=== PATIENT | male | born 1970 ===

== ENCOUNTER 2020-09-01 13:24 | Outpatient (REF) | payer OTHER, SELFPAY ==
--- NOTE | ~2020-09-01 | XR_ITS ---
EXAMINATION: XR CERVICAL SPINE CLINICAL INFORMATION: Cervicalgia COMPARISON: None TECHNIQUE: Cervical spine is imaged in 5 views: AP, odontoid, lateral, and bilateral oblique. FINDINGS: There is normal cervical lordosis. The vertebral bodies are normal in height. There is no cervical vertebral compression, spondylolisthesis, disc narrowing, or prevertebral soft tissue swelling. The odontoid appears intact. Oblique views show no definite spurring neural foramina. There is no cervical rib. XR/XR cervical spine min 6V IMPRESSION: Unremarkable examination.
--- NOTE | ~2020-09-01 | XR_ITS ---
EXAMINATION: XR SHOULDER, RIGHT XR SHOULDER, LEFT CLINICAL INFORMATION: Bilateral pain COMPARISON: Radiographs cervical spine 09/01/2020. TECHNIQUE: The right shoulder is imaged in 5 views. The left shoulder is imaged in 4 views. There are a total of 9 views. FINDINGS: Right: There is a punctate calcification adjacent to greater tuberosity on external rotation view consistent with punctate calcific tendinosis distal superior rotator cuff. The bony mineralization is normal. There is no destructive process. No fracture or dislocation. The glenohumeral joint is normal. There is some smooth benign mineralization in the acromioclavicular joint but no joint narrowing or erosive change or acromioclavicular separation. Left: There is no fracture or dislocation or destructive process. No visible rotator cuff calcifications. Normal bony mineralization. No joint narrowing. The acromioclavicular alignment is normal. XR/XR shoulder LT min 2V IMPRESSION: 1. Right: Punctate calcific tendinosis distal superior rotator cuff. 2. Left: Unremarkable.
--- NOTE | ~2020-09-01 | XR_ITS ---
EXAMINATION: XR LUMBOSACRAL SPINE CLINICAL INFORMATION: Pain. Lumbago with sciatica. COMPARISON: Radiographs lumbar spine 02/22/2020 TECHNIQUE: Three views of the lumbosacral spine. FINDINGS: There is normal lumbar segmentation with 5 nonrib-bearing lumbar vertebrae of normal height and normal lumbar lordosis. There is no lumbar vertebral compression, spondylolisthesis, destructive process, or paraspinal soft tissue swelling. Again, there are degenerative disc changes at L5-S1 with disc narrowing and endplate sclerosis and mild vertebral spurring. Disc narrowing is borderline increased since prior exam. The SI joints and visualized sacrum are unremarkable. XR/XR lumbar spine 2-3V IMPRESSION: Degenerative disc changes L5-S1.
--- NOTE | ~2020-09-01 | XR_ITS ---
EXAMINATION: XR THORACOLUMBAR SPINE CLINICAL INFORMATION: Cervicalgia, lumbago with sciatica COMPARISON: Radiographs cervical spine 09/01/2020 TECHNIQUE: AP and lateral views thoracic spine are obtained. FINDINGS: There is normal thoracic segmentation with 12 rib-bearing thoracic vertebrae of normal height and normal thoracic kyphosis. There is a gentle levocurvature mid to lower thoracic spine. There is no vertebral compression, spondylolisthesis, destructive process, or paraspinal soft tissue swelling. Some mild degenerative disc changes are present mid thoracic spine. XR/XR thoracic spine 2V IMPRESSION: 1. Gentle levocurvature mid to lower thoracic spine with mild degenerative disc changes. 2. No thoracic vertebral compression, spondylolisthesis, or destructive process.
--- NOTE | ~2020-09-01 | XR_ITS ---
EXAMINATION: XR SHOULDER, RIGHT XR SHOULDER, LEFT CLINICAL INFORMATION: Bilateral pain COMPARISON: Radiographs cervical spine 09/01/2020. TECHNIQUE: The right shoulder is imaged in 5 views. The left shoulder is imaged in 4 views. There are a total of 9 views. FINDINGS: Right: There is a punctate calcification adjacent to greater tuberosity on external rotation view consistent with punctate calcific tendinosis distal superior rotator cuff. The bony mineralization is normal. There is no destructive process. No fracture or dislocation. The glenohumeral joint is normal. There is some smooth benign mineralization in the acromioclavicular joint but no joint narrowing or erosive change or acromioclavicular separation. Left: There is no fracture or dislocation or destructive process. No visible rotator cuff calcifications. Normal bony mineralization. No joint narrowing. The acromioclavicular alignment is normal. XR/XR shoulder RT min 2V IMPRESSION: 1. Right: Punctate calcific tendinosis distal superior rotator cuff. 2. Left: Unremarkable.
== END 2020-09-01 13:25 | disposition home or self-care (01) ==
LOC: HO.XRAY 13:24
PROVIDERS: PCP Internal Medicine; Visit Provider Family Medicine
DX: M54.2 Cervicalgia (principal); M54.41 Lumbago with sciatica, right side; M54.42 Lumbago with sciatica, left side
CPT/HCPCS: 72052; 72070; 72100; 73030

== ENCOUNTER 2021-04-08 13:31 | Emergency (ER) | payer OTHER, SELFPAY ==
[2021-04-08 14:02] VITALS: BP 130/81; PULSE 95; RESP 16; TEMP 36.8; O2SAT 98; BMI 28.3
[2021-04-08 14:19] LABS: Glucose, Whole Blood 174 mg/dL (60-115)
--- NOTE | 2021-04-08 15:29 | ED_ITS ---
HPI - General Adult General Chief complaint: General Medical Stated complaint: med refill Time Seen by Provider: 04/08/21 15:29 Source: patient Mode of arrival: ambulatory Limitations: no limitations History of Present Illness HPI narrative: 50-year-old male here for a medication refill. Patient is diabetic, and is out of his lancets, test strips, and pen needles. Patient takes insulin and has not been able to take it for 2 days. Patient has called his primary care provider, but it is the weekend and he cannot get this represcribed today Related Data Previous Rx's Medication Instructions Recorded blood sugar diagnostic (Accutrend #50 ea 04/08/21 Glucose test strips) lancets 28 gauge (FreeStyle #100 ea 04/08/21 Lancets) needle (disp) 26 gauge 26 gauge x #100 ea 04/08/2109/18 (BD Intradermal Bevel [place]) Allergies Allergy/AdvReac Type Severity Reaction Status Date / Time penicillin V Allergy Unknown Verified 01/27/19 00:00 Penicillins [PENICILLINS] Allergy Unknown SHORTNESS Unverified 03/30/20 19:27 OF BREATH Review of Systems Constitutional: Constitutional: Denies body ache(s), Denies chills, Denies fatigue, Denies fever(s), Denies headache(s), Denies malaise and Denies weakness Eyes: Eyes: Denies diplopia ENT: Denies vertigo, Denies dizziness, Denies otalgia, Denies headache(s), Denies mouth pain, Denies post nasal drip, Denies sinus pain, Denies sinus pressure, Denies sore throat and Denies throat swelling Cardiovascular: Cardiovascular: Denies chest pain, Denies syncope, Denies leg edema, Denies lightheadedness, Denies Loss of Consciousness, Denies palpitations and Denies dyspnea Respiratory: Respiratory: Denies chest congestion, Denies cough and Denies dyspnea Gastrointestinal: Gastrointestinal: Denies abdominal pain, Denies hematochezia, Denies constipation, Denies diarrhea and Denies vomiting Musculoskeletal: Musculoskeletal: Reports no additional musculoskeletal complaints Neurologic: Denies confusion, Denies vertigo, Denies dizziness, Denies syncope, Denies headache(s) and Denies weakness Psychiatric: Psychiatric: Denies anxiety, Denies confusion and Denies depression Endocrine: Endocrine: Denies fatigue and Denies palpitations Allergic/Immunologic: Allergic/Immunologic: Denies throat swelling PMFSH Past Medical History Medical History Diabetes HTN (hypertension) Social History Social History Advance Directives: No Physical Exam Vital Signs: Vital Signs: Last Vital Signs Temp 98.2 F 04/08/21 14:02 Pulse 95 04/08/21 14:02 Resp 16 04/08/21 14:02 BP 130/81 04/08/21 14:02 Pulse Ox 98 04/08/21 14:02 Body Mass Index 28.3 Const: General: No confusion Nutritional Appearance: well nourished Orientation/consciousness: No confusion Limitations: no limitations HENMT: Head: Yes normal to inspection, Yes normocephalic and Yes atraumatic Ears: hearing grossly normal bilaterally, external ears normal, TM's normal bilaterally and EAC's normal General nose exam: Normal external nose present Face and sinus: Yes normal facial exam and Yes sinuses nontender Mouth: Normal oral and palatal mucosa present Throat: Yes posterior oropharynx normal Eyes: Conjunctivae: conjunctivae normal Pupils: Equal, round and reactive pupils present EOM: EOMs intact bilaterally Neck: Neck: Yes full ROM, Yes no lymphadenopathy and Yes supple Resp: Effort & Inspection: normal respiratory effort and able to speak in complete sentences Auscultation: clear to auscultation bilaterally, no crackles, no rales, no rhonchi and no wheezes Cardio: Rate: regular rate Rhythm: regular rhythm Heart sounds: S1 normal heart sound present and S2 normal heart sound present Skin: General skin exam: no rashes or lesions noted Neuro: General: No confusion Cranial nerves: Yes Equal, round and reactive pupils present Extrem: General: Yes normal to inspection and Yes full ROM Psych: Appearance: grossly normal Affect: normal affect Attitude: cooperative Thought process: Normal thought process present Course Course Course Narrative: 50-year-old male who is an insulin-dependent diabetic is out of his supplies. Patient is fingerstick glucose was 174. Prescribed lancets, test strips, and insulin needles. Counseled patient that he needs to follow up with his primary care provider for this in the future. Medical Decision Making Lab Data Labs: Lab Results 04/08/21 Range/Units 14:15 POC Glucose 174 H (60-115) mg/dL Discharge Plan Discharge Clinical Impression: Medication refill Patient Disposition: Home, Self-Care Prescriptions: New (DME) lancets [FreeStyle Lancets] 28 gauge misc See Rx Instructions .Route Qty: 100 RF: 0 (DME) Accutrend Glucose test strips Strip See Rx Instructions .Route Qty: 50 RF: 0 (DME) BD Intradermal Bevel [place] 26 gauge x 3/8 needle See Rx Instructions .Route Qty: 100 RF: 0 Interventions: ED Discharge Assessment Last Done: 04/08/21 15:46 Discharge Date/Time: 04/08/21 15:51
== END 2021-04-08 15:51 | disposition home or self-care (01) ==
PROVIDERS: Emergency Provider Emergency Medicine Emergency Medical Services; PCP Internal Medicine
DX: Z76.0 Encounter for issue of repeat prescription (principal); E11.9 Type 2 diabetes mellitus without complications; Z79.899 Other long term (current) drug therapy; Z79.4 Long term (current) use of insulin
CPT/HCPCS: 82947; 99282; 99284

== ENCOUNTER 2021-09-11 06:03 | Outpatient (REF) | payer BC, SELFPAY ==
[2021-09-11 06:18] LABS: MANUAL DIFF FLAG NO
[2021-09-11 07:32] LABS: Basophils Percent Auto 0.4 % (0-2); Eosinophils Absolute Auto 0.4 X10*3/uL (0.0-0.4); Eosinophils Percent Auto 4.2 % (0-4); Hematocrit 45.3 % (42.0-52.0); Hemoglobin 15.2 g/dl (14.0-18.0); Imm Gran Abs Auto 0.03 X10*3/uL (0.00-0.03); Imm Gran Pct Auto 0.3 % (0.0-0.4); Lymphocytes Absolute Auto 2.7 X10*3/uL (1.2-4.9); Lymphocytes Percent Auto 28.6 % (20-40); Mean Corpuscular HGB Conc 33.6 g/dl (31.0-36.0); Mean Corpuscular Hemoglobin 30.8 pg (27.0-33.0); Mean Corpuscular Volume 91.9 fL (80.0-98.0); Mean Platelet Volume 10.7 fL (9.4-12.4); Monocytes Percent Auto 10.2 % (2-11); Neutrophils Absolute Auto 5.2 x10*3/uL (2.0-8.3); Neutrophils Percent Auto 56.3 % (45-73); Platelet Count 288 X10*3/uL (160-400); Red Blood Count 4.93 X10*6/uL (4.60-5.80); Red Cell Distribution Width 13.2 % (11.0-16.0); White Blood Count 9.3 X10*3/uL (4.8-10.8)
[2021-09-11 07:34] LABS: Estimated Average Glucose 166 mg/dL; Hemoglobin A1c % 7.4 %
[2021-09-11 08:04] LABS: Alanine Aminotransferase 49 U/L (0-40); Albumin Level 4.3 g/dL (3.5-5.0); Alkaline Phosphatase 86 U/L (39-117); Anion Gap 17 (12-20); Aspartate Amino Transferase 34 U/L (5-37); Bilirubin Total 0.3 mg/dL (0.0-1.0); Blood Urea Nitrogen 20 mg/dL (9-16); Calcium 9.6 mg/dL (8.4-10.2); Carbon Dioxide 27 mmol/L (22-29); Chloride 103 mmol/L (96-108); Cholesterol 173 mg/dL; Estimated Glomerular Filt Rate 59; Glucose Random 105 mg/dL (60-115); HDL Cholesterol 34 mg/dL; LDL Cholesterol Calculated 109 mg/dl; Potassium 4.5 mmol/L (3.3-5.1); Sodium 142 mmol/L (135-145); Total Protein 7.7 g/dL (6.5-8.0); Triglycerides 152 mg/dL
[2021-09-11 08:09] LABS: Prostate Specific Antigen 0.67 ng/mL (<0.05-4.0); TSH reflex Free T4 2.27 uIU/mL (0.32-4.0)
[2021-09-11 08:26] LABS: Folate 10.4 ng/mL (> or = 4.0); Vitamin B12 427 pg/mL (200-900)
[2021-09-11 08:26] LABS: Creatinine Urine 231.81 mg/dL; Microalbum/Creatinine Ratio Ur 6.9 ug/mg cr
== END 2021-09-11 06:04 | disposition home or self-care (01) ==
LOC: HO.LAB 06:03
PROVIDERS: PCP Internal Medicine; Visit Provider Internal Medicine
DX: Z12.5 Encounter for screening for malignant neoplasm of prostate (principal); E11.9 Type 2 diabetes mellitus without complications; E78.5 Hyperlipidemia, unspecified; I10 Essential (primary) hypertension; R35.0 Frequency of micturition
CPT/HCPCS: 36415; 80053; 80061; 82043; 82607; 82746; 83036; 84153; 84443; 85025

== ENCOUNTER 2021-10-26 18:50 | Emergency (ER) | payer BC, SELFPAY ==
--- NOTE | 2021-10-26 | ECG_ITS ---
Test Reason : CHEST PAIN Blood Pressure : / mmHG Vent. Rate : 089 BPM Atrial Rate : 089 BPM P-R Int : 134 ms QRS Dur : 070 ms QT Int : 320 ms P-R-T Axes : 033 013 030 degrees QTc Int : 389 ms Normal sinus rhythm Septal infarct , age undetermined Abnormal ECG When compared with ECG of 15-AUG-2019 17:42, Septal infarct is now Present Referred By: Generic ED Physician Electronically Signed By:Blaze Parekh
--- NOTE | ~2021-10-26 | XR_ITS ---
EXAMINATION: XR CHEST CLINICAL INFORMATION: Pain. Evaluate for pneumonia. COMPARISON: None TECHNIQUE: Frontal view of the chest was obtained. FINDINGS: Normal symmetric lung volumes. No parenchymal consolidation. No pleural effusion. No pneumothorax. Cardiomediastinal silhouette and pulmonary vascularity are within normal limits. No acute osseous abnormalities. XR/XR chest 1V IMPRESSION: No acute findings
[2021-10-26 19:04] VITALS: BP 143/96; PULSE 90; RESP 16; TEMP 36.4; O2SAT 96; BMI 29.1
[2021-10-26 19:20] LABS: MANUAL DIFF FLAG NO
[2021-10-26 19:24] LABS: Basophils Percent Auto 0.3 % (0-2); Eosinophils Absolute Auto 0.4 X10*3/uL (0.0-0.4); Eosinophils Percent Auto 3.1 % (0-4); Hematocrit 43.6 % (42.0-52.0); Hemoglobin 14.5 g/dl (14.0-18.0); Imm Gran Abs Auto 0.02 X10*3/uL (0.00-0.03); Imm Gran Pct Auto 0.2 % (0.0-0.4); Lymphocytes Absolute Auto 3.2 X10*3/uL (1.2-4.9); Lymphocytes Percent Auto 27.1 % (20-40); Mean Corpuscular HGB Conc 33.3 g/dl (31.0-36.0); Mean Corpuscular Hemoglobin 30.5 pg (27.0-33.0); Mean Corpuscular Volume 91.6 fL (80.0-98.0); Mean Platelet Volume 10.3 fL (9.4-12.4); Monocytes Absolute Auto 0.9 X10*3/uL (0.1-1.2); Monocytes Percent Auto 7.7 % (2-11); Neutrophils Absolute Auto 7.2 x10*3/uL (2.0-8.3); Neutrophils Percent Auto 61.6 % (45-73); Platelet Count 245 X10*3/uL (160-400); Red Blood Count 4.76 X10*6/uL (4.60-5.80); Red Cell Distribution Width 13.2 % (11.0-16.0); White Blood Count 11.6 X10*3/uL (4.8-10.8)
[2021-10-26 19:40] LABS: Alanine Aminotransferase 39 U/L (0-40); Albumin Level 4.2 g/dL (3.5-5.0); Alkaline Phosphatase 104 U/L (39-117); Anion Gap 16 (12-20); Aspartate Amino Transferase 23 U/L (5-37); Bilirubin Total 0.5 mg/dL (0.0-1.0); Blood Urea Nitrogen 19 mg/dL (9-16); Calcium 9.4 mg/dL (8.4-10.2); Carbon Dioxide 26 mmol/L (22-29); Chloride 102 mmol/L (96-108); Creatinine Clr Calc Pharmacy 53.3; Estimated Glomerular Filt Rate 46; Glucose Random 179 mg/dL (60-115); Potassium 4.8 mmol/L (3.3-5.1); Sodium 139 mmol/L (135-145); Total Protein 7.9 g/dL (6.5-8.0)
[2021-10-26 19:59] LABS: Influenza A Negative (Negative); Influenza B2 Negative (Negative)
[2021-10-26 20:00] LABS: COVID-19 Test Negative (Negative); IDNOW Serial# 16C4AD1C
[2021-10-26 23:38] VITALS: BP 144/100; PULSE 84; RESP 15; O2SAT 98
[2021-10-26 23:45] LABS: Glucose, Whole Blood 91 mg/dL (60-115)
--- NOTE | 2021-10-27 00:14 | ED.GENADULT ---
HPI - General Adult General Chief complaint: General Medical Stated complaint: congestion/chest pain/sore throat Time Seen by Provider: 10/27/21 00:08 Source: patient Mode of arrival: ambulatory Limitations: no limitations History of Present Illness HPI narrative: Patient was in the emergency room complaining of coughing for 4 days. Patient states that every time he coughs, he has chest pain bilaterally. Patient does not have shortness of breath. Patient states that yesterday he borrowed add nebulizer from a family member, give himself 1 neb treatment. Patient denies shortness of breath. No palpitations, no calf pain. Related Data Previous Rx's Medication Instructions Recorded blood sugar diagnostic (Accutrend #50 ea 04/08/21 Glucose test strips) lancets 28 gauge (FreeStyle #100 ea 04/08/21 Lancets) needle (disp) 26 gauge 26 gauge x #100 ea 04/08/21 3/8 (BD Intradermal Bevel [place]) Allergies Allergy/AdvReac Type Severity Reaction Status Date / Time penicillin V Allergy Unknown Verified 01/27/19 00:00 Penicillins [PENICILLINS] Allergy Unknown SHORTNESS Unverified 03/30/20 19:27 OF BREATH Review of Systems Review of Systems: Constitutional : No Weight loss, No Fever, No Chills, No Night Sweats, No Fatigue, No Malaise ENT/Mouth : No Hearing loss, No Ear Pain, No Nasal Congestion, No Sinus Pain, No Hoarseness, No sore throat, No Rhinorrhea, No Swallowing Difficulty Eyes: No Eye Pain, No Swelling, No Redness, No Foreign Body, No Discharge, No Vision Changes Cardiovascular : Complaining of bilateral chest discomfort only when coughing, otherwise no chest pain. No SOB, No Dyspnea on Exertion, No Orthopnea, No Edema, No Palpitations Respiratory : Complaining of cough, no wheezing Gastrointestinal : No Nausea, No Vomiting, No Diarrhea, No Constipation, No abdominal Pain, No Hematochezia, No Melena Genitourinary : no irregular bleeding, No Dysuria, No Urinary Frequency, No Hematuria, No Urinary Incontinence, No Urgency, No Flank Pain, No Urinary Flow Changes, No Hesitancy Musculoskeletal : No joint pain, No Myalgias, No Joint Swelling Skin : No Skin Lesions, No rash Neuro : No Weakness, No Numbness, No Paresthesias, No Loss of Consciousness, No Dizziness, No Headache Psych : No Anxiety/Panic, No Depression, No SI/HI/AH/VH, No Social Issues, Heme/Lymph: No Bruising, No Bleeding,No Lymphadenopathy Endocrine : No Polyuria, No Polydipsia, No Temperature Intolerance [facility] Past Medical History Medical History Diabetes HTN (hypertension) Social History Social History Advance Directives: No Physical Exam ED Vital Signs: Vital Signs - 24 hr 10/26/21 19:04 10/26/21 23:38 10/27/21 01:24 Temperature 97.5 F Pulse Rate 90 84 86 Respiratory Rate 16 15 20 Blood Pressure 143/96 H 144/100 H 140/82 H Pulse Oximetry 96 98 BMI result Body Mass Index 29.1 Const Other: Appearance: Alert. Oriented X3. No acute distress. Well-appearing Eyes: Pupils equal, round and reactive to light. ENT: Pharynx normal. Neck: Normal inspection. Neck supple. No lymph nodes noted. No crepitus CVS: Normal heart rate and rhythm. Pulses normal. Normal S1 and S2 Respiratory: No respiratory distress. Breath sounds normal. No Wheezing. No rales Abdomen: Soft and nontender. No rigidity. No distention. Skin: Skin warm and dry. Normal skin color. Normal skin turgor. Extremities: No lower extremity edema. No Lacerations. No Rash Neuro: Oriented X 3. No motor deficit. No sensory deficit. Moving all extremities. No slurred speech. CN 2 through 12 grossly intact Psych: calm, cooperative, normal affect Course Course Course Narrative: Chest x-ray pending. Creatinine is slightly elevated at 1.61., patient getting IV fluids. Will repeat labs after repeating labs. Mild leukocytosis likely reactive. After IV fluids, creatinine improved, likely secondary to hydration. Patient likely having a viral syndrome Medical Decision Making Lab Data Result diagrams: 10/26/21 19:13 10/27/21 01:26 Labs: Lab Results 10/26/21 10/26/21 10/26/21 Range/Units 19:13 19:13 19:13 WBC 11.6 H (4.8-10.8) X10*3/uL RBC 4.76 (4.60-5.80) X10*6/uL Hgb 14.5 (14.0-18.0) g/dl Hct 43.6 (42.0-52.0) % MCV 91.6 (80.0-98.0) fL MCH 30.5 (27.0-33.0) pg MCHC 33.3 (31.0-36.0) g/dl RDW 13.2 (11.0-16.0) % Plt Count 245 (160-400) X10*3/uL MPV 10.3 (9.4-12.4) fL Immature Gran % (Auto) 0.2 (0.0-0.4) % Neut % (Auto) 61.6 (45-73) % Lymph % (Auto) 27.1 (20-40) % [place] % (Auto) 7.7 (2-11) % Eos % (Auto) 3.1 (0-4) % Baso % (Auto) 0.3 (0-2) % Lymph # (Auto) 3.2 (1.2-4.9) X10*3/uL [place] # (Auto) 0.9 (0.1-1.2) X10*3/uL Eos # (Auto) 0.4 (0.0-0.4) X10*3/uL Baso # (Auto) 0.0 (0.0-0.2) X10*3/uL Abs Immat Gran (auto) 0.02 (0.00-0.03) X10*3/uL Absolute Neuts (auto) 7.2 (2.0-8.3) x10*3/uL Absolute Nucleated RBC 0.000 (0.0-0.012) X10*3/uL Nucleated RBC % (auto) 0.0 (0.0-0.2) /100WBC Sodium 139 (135-145) mmol/L Potassium 4.8 (3.3-5.1) mmol/L Chloride 102 (96-108) mmol/L Carbon Dioxide 26 (22-29) mmol/L Anion Gap 16 (12-20) BUN 19 H (9-16) mg/dL Creatinine 1.61 H (0.5-1.4) mg/dL Estim Creat Clear Calc 53.3 Estimated GFR 46 POC Glucose (60-115) mg/dL Random Glucose 179 H D (60-115) mg/dL Calcium 9.4 (8.4-10.2) mg/dL Total Bilirubin 0.5 (0.0-1.0) mg/dL AST 23 (5-37) U/L ALT 39 (0-40) U/L Alkaline Phosphatase 104 D (39-117) U/L Total Protein 7.9 (6.5-8.0) g/dL Albumin 4.2 (3.5-5.0) g/dL COVID-19 (ARELY) (Negative) COVID-19 Clin Com Influenza Type A (TERI) Negative (Negative) Influenza Type B (TERI) Negative (Negative) Influenza A & B Note See Note 10/26/21 10/26/21 10/27/21 Range/Units 19:13 23:36 01:26 WBC (4.8-10.8) X10*3/uL RBC (4.60-5.80) X10*6/uL Hgb (14.0-18.0) g/dl Hct (42.0-52.0) % MCV (80.0-98.0) fL MCH (27.0-33.0) pg MCHC (31.0-36.0) g/dl RDW (11.0-16.0) % Plt Count (160-400) X10*3/uL MPV (9.4-12.4) fL Immature Gran % (Auto) (0.0-0.4) % Neut % (Auto) (45-73) % Lymph % (Auto) (20-40) % [place] % (Auto) (2-11) % Eos % (Auto) (0-4) % Baso % (Auto) (0-2) % Lymph # (Auto) (1.2-4.9) X10*3/uL [place] # (Auto) (0.1-1.2) X10*3/uL Eos # (Auto) (0.0-0.4) X10*3/uL Baso # (Auto) (0.0-0.2) X10*3/uL Abs Immat Gran (auto) (0.00-0.03) X10*3/uL Absolute Neuts (auto) (2.0-8.3) x10*3/uL Absolute Nucleated RBC (0.0-0.012) X10*3/uL Nucleated RBC % (auto) (0.0-0.2) /100WBC Sodium 141 (135-145) mmol/L Potassium 3.8 D (3.3-5.1) mmol/L Chloride 107 (96-108) mmol/L Carbon Dioxide 24 (22-29) mmol/L Anion Gap 14 (12-20) BUN 17 H (9-16) mg/dL Creatinine 1.05 (0.5-1.4) mg/dL Estim Creat Clear Calc 81.7 Estimated GFR > 60 POC Glucose 91 (60-115) mg/dL Random Glucose 72 D (60-115) mg/dL Calcium 8.6 D (8.4-10.2) mg/dL Total Bilirubin (0.0-1.0) mg/dL AST (5-37) U/L ALT (0-40) U/L Alkaline Phosphatase (39-117) U/L Total Protein (6.5-8.0) g/dL Albumin (3.5-5.0) g/dL COVID-19 (ARELY) Negative (Negative) COVID-19 Clin Com See Note Influenza Type A (TERI) (Negative) Influenza Type B (TERI) (Negative) Influenza A & B Note Imaging Data Chest x-ray: Radiologist's impression: Normal symmetric lung volumes. No parenchymal consolidation. No pleural effusion. No pneumothorax.? Cardiomediastinal silhouette and pulmonary vascularity are within normal limits. No acute osseous abnormalities. XR/XR chest 1V IMPRESSION: No acute findings Discharge Plan Discharge Clinical Impression: Acute viral syndrome, Acute kidney injury Patient Disposition: Home, Self-Care Instructions: Viral Syndrome (ED), Acute Kidney Injury (DC) Additional Instructions: Please follow-up with your primary care physician tomorrow. If you have any worsening or new symptoms, please return to the emergency room or call 911 Prescriptions: No Action (DME) lancets [FreeStyle Lancets] 28 gauge misc See Rx Instructions .Route Qty: 100 0RF Rx Instructions: As directed (DME) Accutrend Glucose test strips Strip See Rx Instructions .Route Qty: 50 0RF Rx Instructions: As directed (DME) BD Intradermal Bevel [place] 26 gauge x 3/8 needle See Rx Instructions .Route Qty: 100 0RF Rx Instructions: As directed
[2021-10-27] MEDS: 0.9 % Sodium Chloride 1,000 ML 999 ML IVCONT (00:30)
[2021-10-27 01:24] VITALS: BP 140/82; PULSE 86; RESP 20
[2021-10-27 01:55] LABS: Anion Gap 14 (12-20); Blood Urea Nitrogen 17 mg/dL (9-16); Calcium 8.6 mg/dL (8.4-10.2); Carbon Dioxide 24 mmol/L (22-29); Chloride 107 mmol/L (96-108); Creatinine Clr Calc Pharmacy 81.7; Estimated Glomerular Filt Rate > 60; Glucose Random 72 mg/dL (60-115); Potassium 3.8 mmol/L (3.3-5.1); Sodium 141 mmol/L (135-145)
--- NOTE | 2021-10-27 02:16 | PC.NURSE ---
I assumed nursing care of Pete at 2330. Since that time the pt has been alert, oriented x 3, without chest pain and without shortness of breath. He has remained calm and cooperative, ambulatory with steady gait, makes eye contact with RN. Pt is discharged at this time. He verbalized an understanding of all DC orders and he ambulated out of the ED independently and with steady agit.
== END 2021-10-27 02:16 | disposition home or self-care (01) ==
PROVIDERS: Emergency Provider Emergency Medicine
DX: B34.9 Viral infection, unspecified (principal); R07.89 Other chest pain; R05.9 Cough, unspecified; Z79.899 Other long term (current) drug therapy; Z20.822 Contact with and (suspected) exposure to COVID-19
CPT/HCPCS: 36415; 71045; 80048; 80053; 82947; 85025; 87502; 87635; 93005; 96360; 99284

== ENCOUNTER 2022-12-31 20:02 | Emergency (ER) | payer BC, SELFPAY ==
[2022-12-31 20:10] VITALS: BP 151/65; PULSE 86; RESP 18; TEMP 36.1; O2SAT 99; BMI 31.7
--- NOTE | 2022-12-31 20:12 | ED_ITS ---
HPI - General Adult General Chief complaint: Abdominal Pain Stated complaint: Vomiting/Diarrhea/Body aches Time Seen by Provider: 12/31/22 22:46 Source: patient Mode of arrival: ambulatory Limitations: no limitations History of Present Illness HPI narrative: Patient otherwise healthy had a hamburger from [employer] yesterday since then been having diarrhea and diffuse abdominal pain at slight nausea now feeling much better last bowel movement was 2 hours ago no fever no chills no blood in the stool Related Data Previous Rx's Medication Instructions Recorded blood sugar diagnostic (Accutrend #50 ea 04/08/21 Glucose test strips) lancets 28 gauge (FreeStyle #100 ea 04/08/21 Lancets) needle (disp) 26 gauge 26 gauge x #100 ea 04/08/21 3/8 (BD Intradermal Bevel [place]) Allergies Allergy/AdvReac Type Severity Reaction Status Date / Time penicillin V Allergy Unknown Verified 01/27/19 00:00 Penicillins [PENICILLINS] Allergy Unknown SHORTNESS Unverified 03/30/20 19:27 OF BREATH Review of Systems Review of Systems: Yes all other systems are reviewed and are negative [facility] Past Medical History Medical History Diabetes HTN (hypertension) Social History Social History Advance Directives: No Advance Directives Information Provided: No Physical Exam ED Vital Signs: Vital Signs - 24 hr 12/31/22 20:10 Temperature 96.9 F Pulse Rate 86 Respiratory Rate 18 Blood Pressure 151/65 H Pulse Oximetry 99 Oxygen Delivery Method Room Air BMI result Body Mass Index 31.7 Appearance: Alert. Oriented X3. No acute distress. Eyes: No pallor or icterus ENT: Pharynx normal. Oral Mucosa moist Neck: Normal inspection. Neck supple. CVS: Normal heart rate and rhythm. Pulses normal. Respiratory: No respiratory distress. Equal air entry bilateral, no wheezing/rales/rhonchi Abdomen: Soft no focal tenderness no guarding or rebound tenderness. Bowel sounds are present, no mass palpable, no CVA tenderness Skin: Skin warm and dry. Normal skin color. Normal skin turgor. Extremities: No lower extremity edema. No calf tenderness Neuro: Oriented X 3. Course Course Course Narrative: 52-year-old male presents for evaluation abdominal pain, nausea vomiting diarrhea and fatigue/weakness. Symptoms started last night. Plan for labs, UA Medical Decision Making Medical Decision Making [facility] [place] Narrative: Likely patient has food poisoning feeling much better labs were stable discharge patient home after giving him a dose of Imodium at this time his diarrhea is getting better Lab Data [facility] [place] Lab Attestation statement: I reviewed the patient's lab results. 12/31/22 20:33 12/31/22 20:33 Labs: Lab Results 12/31/22 12/31/22 12/31/22 Range/Units 20:33 20:33 20:33 WBC 10.4 (4.8-10.8) X10*3/uL RBC 4.74 (4.60-5.80) X10*6/uL Hgb 14.6 (14.0-18.0) g/dl Hct 41.9 L (42.0-52.0) % MCV 88.4 (80.0-98.0) fL MCH 30.8 (27.0-33.0) pg MCHC 34.8 (31.0-36.0) g/dl RDW 13.1 (11.0-16.0) % Plt Count 234 (160-400) X10*3/uL MPV 10.7 (9.4-12.4) fL Immature Gran % (Auto) 0.3 (0.0-0.4) % Neut % (Auto) 52.4 (45-73) % Lymph % (Auto) 30.8 (20-40) % [place] % (Auto) 6.8 (2-11) % Eos % (Auto) 9.1 H (0-4) % Baso % (Auto) 0.6 (0-2) % Lymph # (Auto) 3.2 (1.2-4.9) X10*3/uL [place] # (Auto) 0.7 (0.1-1.2) X10*3/uL Eos # (Auto) 0.9 H (0.0-0.4) X10*3/uL Baso # (Auto) 0.1 (0.0-0.2) X10*3/uL Abs Immat Gran (auto) 0.03 (0.00-0.03) X10*3/uL Absolute Neuts (auto) 5.4 (2.0-8.3) x10*3/uL Absolute Nucleated RBC 0.000 (0.0-0.012) X10*3/uL Nucleated RBC % (auto) 0.0 (0.0-0.2) /100WBC Sodium 139 (135-145) mmol/L Potassium 4.1 (3.3-5.1) mmol/L Chloride 104 (96-108) mmol/L Carbon Dioxide 25 (22-29) mmol/L Anion Gap 14 (12-20) BUN 17 H (9-16) mg/dL Creatinine 1.25 (0.5-1.4) mg/dL Estim Creat Clear Calc 61.1 Estimated GFR > 60 Random Glucose 174 H (60-115) mg/dL Calcium 9.6 D (8.4-10.2) mg/dL Total Bilirubin 0.6 (0.0-1.0) mg/dL AST 42 H (5-37) U/L ALT 47 H (0-40) U/L Alkaline Phosphatase 92 (39-117) U/L Total Protein 7.6 (6.5-8.0) g/dL Albumin 4.1 (3.5-5.0) g/dL Lipase 29 (8-78) U/L Urine Color Yellow Urine Appearance Clear Urine pH 7.0 (5.0-9.0) Ur Specific [place] 1.015 (1.005-1.025) Urine Protein Negative (Neg-Trace) mg/dL Urine Glucose (UA) Negative (Negative) mg/dL Urine Ketones Negative (Negative) mg/dL Urine Blood Negative (Negative) Urine Nitrite Negative (Negative) Ur Leukocyte Esterase Negative (Negative) Urine RBC 0-2 (0-2) /HPF Urine WBC 0-5 (0-5) /HPF Ur Squamous Epith Cells 0-2 (0-2) /HPF Urine Bacteria None Seen (None Seen) Hyaline Casts 0-2 (0-2) /LPF Discharge Plan Discharge Clinical Impression: Gastroenteritis Patient Disposition: Home, Self-Care Instructions: Gastroenteritis (ED) Additional Instructions: Drink plenty of fluids Advanced food as tolerated Report to ER if worsening abdominal pain/vomiting/diarrhea Prescriptions: No Action (DME) lancets [FreeStyle Lancets] 28 gauge misc See Rx Instructions .Route Qty: 100 0RF Rx Instructions: As directed (DME) Accutrend Glucose test strips Strip See Rx Instructions .Route Qty: 50 0RF Rx Instructions: As directed (DME) BD Intradermal Bevel [place] 26 gauge x 3/8 needle See Rx Instructions .Route Qty: 100 0RF Rx Instructions: As directed Stand Alone Forms: Work/School Release
--- NOTE | 2022-12-31 20:34 | MHC.EDTECH ---
PATIENT BLOOD VDRAWN ,URINE SAMPLE COLLECTED AND SENT TO LAB .
[2022-12-31 20:39] LABS: MANUAL DIFF FLAG NO
[2022-12-31 20:43] LABS: Appearance Urine Clear; Color Urine Yellow; Glucose Urine UA Negative (Negative); Leukocyte Esterase Urine Negative (Negative); Nitrite Urine Negative (Negative); Specific Gravity - Urine 1.015 (1.005-1.025); Urine Blood Negative (Negative); Urine Ketones Negative (Negative); Urine Protein Negative (Neg-Trace)
[2022-12-31 20:46] LABS: Bacteria Urine None Seen (None Seen); Hyaline Casts Urine 0-2 /LPF (0-2); RBC Urine 0-2 /HPF (0-2); Squamous Epithelial Cell Urine 0-2 /HPF (0-2); WBC Urine 0-5 /HPF (0-5)
[2022-12-31 20:53] LABS: Basophils Absolute Auto 0.1 X10*3/uL (0.0-0.2); Basophils Percent Auto 0.6 % (0-2); Eosinophils Absolute Auto 0.9 X10*3/uL (0.0-0.4); Eosinophils Percent Auto 9.1 % (0-4); Hematocrit 41.9 % (42.0-52.0); Hemoglobin 14.6 g/dl (14.0-18.0); Imm Gran Abs Auto 0.03 X10*3/uL (0.00-0.03); Imm Gran Pct Auto 0.3 % (0.0-0.4); Lymphocytes Absolute Auto 3.2 X10*3/uL (1.2-4.9); Lymphocytes Percent Auto 30.8 % (20-40); Mean Corpuscular HGB Conc 34.8 g/dl (31.0-36.0); Mean Corpuscular Hemoglobin 30.8 pg (27.0-33.0); Mean Corpuscular Volume 88.4 fL (80.0-98.0); Mean Platelet Volume 10.7 fL (9.4-12.4); Monocytes Absolute Auto 0.7 X10*3/uL (0.1-1.2); Monocytes Percent Auto 6.8 % (2-11); Neutrophils Absolute Auto 5.4 x10*3/uL (2.0-8.3); Neutrophils Percent Auto 52.4 % (45-73); Platelet Count 234 X10*3/uL (160-400); Red Blood Count 4.74 X10*6/uL (4.60-5.80); Red Cell Distribution Width 13.1 % (11.0-16.0); White Blood Count 10.4 X10*3/uL (4.8-10.8)
[2022-12-31 20:55] LABS: Alanine Aminotransferase 47 U/L (0-40); Albumin Level 4.1 g/dL (3.5-5.0); Alkaline Phosphatase 92 U/L (39-117); Anion Gap 14 (12-20); Aspartate Amino Transferase 42 U/L (5-37); Bilirubin Total 0.6 mg/dL (0.0-1.0); Blood Urea Nitrogen 17 mg/dL (9-16); Calcium 9.6 mg/dL (8.4-10.2); Carbon Dioxide 25 mmol/L (22-29); Chloride 104 mmol/L (96-108); Creatinine Clr Calc Pharmacy 61.1; Estimated Glomerular Filt Rate > 60; Glucose Random 174 mg/dL (60-115); Lipase 29 U/L (8-78); Potassium 4.1 mmol/L (3.3-5.1); Sodium 139 mmol/L (135-145); Total Protein 7.6 g/dL (6.5-8.0)
[2022-12-31] MEDS: Loperamide HCl 2 MG CAPSULE PO (23:28)
[2022-12-31 23:32] VITALS: BP 148/68; PULSE 82; RESP 18; O2SAT 97
== END 2022-12-31 23:33 | disposition home or self-care (01) ==
PROVIDERS: Physician Assistant; Emergency Provider Internal Medicine
DX: K52.9 Noninfective gastroenteritis and colitis, unspecified (principal); Z79.899 Other long term (current) drug therapy
CPT/HCPCS: 36415; 80053; 81001; 83690; 85025; 99283; 99284

== ENCOUNTER 2023-03-19 18:24 | Emergency (ER) | payer OTHER, BC, SELFPAY ==
--- NOTE | 2023-03-19 18:45 | ED.BACK ---
HPI - Back Pain/Injury General Chief Complaint: Back Pain/Injury Stated Complaint: lower back pain, work injury Time Seen by Provider: 03/19/23 18:48 Source: patient Mode of arrival: ambulatory Limitations: no limitations History of Present Illness HPI Narrative: 52 yo male with history of DM here with complaints of lower back pain after a pulling movement while working today. Notified his employer. Radiation of pain to both legs and upper back. No numbness/tingling. No incontinence of urine/stool. Has not tried OTC medications. Related Data Previous Rx's Medication Instructions Recorded blood sugar diagnostic (Accutrend #50 ea 04/08/21 Glucose test strips) lancets 28 gauge (FreeStyle #100 ea 04/08/21 Lancets) needle (disp) 26 gauge 26 gauge x #100 ea 04/08/21 3/8 (BD Intradermal Bevel [place]) cyclobenzaprine 10 mg tablet 10 mg PO TID PRN muscle spasm #15 03/19/23 tabs naproxen 500 mg tablet 500 mg PO BID PRN pain #30 tabs 03/19/23 Allergies Allergy/AdvReac Type Severity Reaction Status Date / Time penicillin V Allergy Unknown Verified 01/27/19 00:00 Penicillins [PENICILLINS] Allergy Unknown SHORTNESS Unverified 03/30/20 19:27 OF BREATH Review of Systems Review of Systems: Yes all other systems are reviewed and are negative Constitutional: Constitutional: Reports no additional constitutional complaints, Denies body ache(s), Denies chills, Denies fever(s), Denies headache(s) and Denies weakness Eyes: Eyes: Reports no additional eye complaints and Denies change in vision ENT: Reports system reviewed and no additional complaints, except as documented, Denies dizziness, Denies headache(s), Denies nasal congestion, Denies nasal discharge and Denies neck pain Cardiovascular: Cardiovascular: Reports no additional cardiovascular complaints, Denies chest pain, Denies leg edema and Denies dyspnea Respiratory: Respiratory: Reports no additional respiratory complaints, Denies cough and Denies dyspnea Gastrointestinal: Gastrointestinal: Reports no additional gastrointestinal complaints, Denies abdominal pain, Denies diarrhea, Denies nausea and Denies vomiting Genitourinary: Genitourinary: Denies urinary incontinence Musculoskeletal: Musculoskeletal: Reports no additional musculoskeletal complaints, Reports back pain, Denies arthralgias, Denies joint swelling, Denies neck pain, Denies numbness and Denies tingling Integumentary/Breasts: Skin/Breast: Reports system reviewed and no additional complaints, except as docu and Denies rash Neurologic: Reports system reviewed and no additional complaints, except as documented, Denies Abnormal speech present, Denies dizziness, Denies headache(s), Denies numbness, Denies tingling and Denies weakness PMF Past Medical History Attestation statement: The following information was validated with the patient. Source: old records reviewed and nursing notes reviewed Medical History Diabetes HTN (hypertension) Social History Social History Alcohol intake: never Advance Directives: No Advance Directives Information Provided: No Physical Exam Vital Signs: Vital Signs: Last Vital Signs Temp 98.2 F 03/19/23 18:46 Pulse 89 03/19/23 18:46 Resp 16 03/19/23 18:46 BP 152/101 H 03/19/23 18:46 Pulse Ox 98 03/19/23 18:46 O2 Del Method Room Air 03/19/23 18:46 BMI result Body Mass Index 28.0 Const: General: cooperative, healthy appearing, comfortable and no acute distress Orientation/consciousness: patient oriented x3 Limitations: no limitations HEENT: Head: Yes normal to inspection Ears: hearing grossly normal bilaterally General nose exam: Normal external nose present Face and sinus: Yes normal facial exam Mouth: Normal oral and palatal mucosa present Throat: Yes posterior oropharynx normal Eyes: General: appearance normal, both eyes and all related structures Pupils: Equal, round and reactive pupils present Neck: Neck: Yes normal visual inspection Chest: Chest palpation & inspection: normal inspection of the chest Resp: Effort & Inspection: normal respiratory effort Auscultation: clear to auscultation bilaterally Cardio: Rate: regular rate Rhythm: regular rhythm Peripheral pulses: Peripheral pulses 2+ throughout GI: Inspection: Yes normal to inspection Palpation (GI): Soft to palpation and nontender Auscultation: normal bowel sounds Back/Spine/Pelvis: Other: No midline tenderness, step-offs deformities. Pain is worsened with flexion and extension of the lumbar spine Thoracic/Lumbar Spine: thoracic and lumbar spine normal to inspection Skin: General skin exam: no rashes or lesions noted Neuro: General: patient oriented x3, moves all extremities, no focal motor deficits and normal sensation to monofilament Cranial nerves: Yes CN's II-XII intact bilaterally, Yes Equal, round and reactive pupils present, Yes Bilaterally intact EOM present, Yes Nystagmus not present, Yes Normal facial strength present and Yes Midline tongue present Cognition (Neuro): normal cognition Speech: No Abnormal speech present Gait exam (Neuro): Normal gait present Motor exam (neuro): 5/5 motor strength present throughout Sensory Exam: Normal double simultaneous stimulation for sensation Deep tendon reflexes (DTR's): Right patellar reflex intensity grade: 2+ and Left patellar reflex intensity grade: 2+ Extrem: General: Yes normal to inspection Course Course Course Narrative: This is a rapid medical exam. Deferred additional HPI, ROS, PE to primary provider. 52 yo male with history of DM here with complaints of lower back pain after a pulling sensation while working today. Notified his employer. Radiation of pain to both legs and upper back. No numbness/tingling. No incontinence of urine/stool. Has not tried OTC medications. Medical Decision Making Medical Decision Making [facility] Narrative: 52 yo male with history of DM here with complaints of lower back pain after a pulling movement while working today. Notified his employer. Radiation of pain to both legs and upper back. No numbness/tingling. No incontinence of urine/stool. Has not tried OTC medications. On exam patient has tenderness diffusely but no midline tenderness, step offs or deformities Normal neurological exam with no red flag symptoms or neurological deficit Likely strain Patient discharged home with NSAID, muscle relaxants recommendations follow-up with occupational health outpatient. Reviewed worrisome signs and symptoms when to return to the emergency room. Control plan for discharge home. Differential Diagnosis Differential Diagnoses: The differential diagnosis associated with the presentation includes Lumbar strain Low concern for fracture with no fall Low concern for epidural abscess, cord compression, cauda equina, malignancy within normal neurological exam with no red flag symptoms, no history of IV drug abuse or immunocompromised state, no previous surgeries with hardware in place Admission/Observation Consideration of admission/observation: Escalation of care including admission/observation considered Normal neuro exam with no need for emergent MRI, neurosurgery evaluation, transfer to tertiary care center Tests considered The following testing was considered but not selected: Normal neuro exam with no need for emergent MRI no fall to suggest need for x-ray to r/o fx Discharge Plan Discharge Clinical Impression: Lumbar strain Patient Disposition: Home, Self-Care Instructions: Low Back Strain (ED) Additional Instructions: Heat or ice Gentle stretching No heavy lifting or bending Follow-up with your employer is workmen's Comp If they do not have one you may follow-up with work connection here at [facility] at [phone] Calor o hielo Estiramiento suave Sin levantar objetos pesados ??ni agacharse El seguimiento con moya empleador es la compensaci?n laboral. Si no tienen roxy, puede hacer seguimiento con la conexi?n laboral aqu? en [facility] al [phone]. Prescriptions: New naproxen 500 mg tablet 500 mg PO BID PRN (Reason: pain) Qty: 30 0RF cyclobenzaprine 10 mg tablet 10 mg PO TID PRN (Reason: muscle spasm) Qty: 15 0RF No Action (DME) lancets [FreeStyle Lancets] 28 gauge misc See Rx Instructions .Route Qty: 100 0RF Rx Instructions: As directed (DME) Accutrend Glucose test strips Strip See Rx Instructions .Route Qty: 50 0RF Rx Instructions: As directed (DME) BD Intradermal Bevel [place] 26 gauge x 3/8 needle See Rx Instructions .Route Qty: 100 0RF Rx Instructions: As directed Referrals: Jun Collins PA-C [Primary Care Provider] - 1 week Stand Alone Forms: Work/School Release Interventions: ED Discharge Assessment Last Done: 03/19/23 18:58 Print Language: Indonesian
[2023-03-19 18:46] VITALS: BP 152/101; PULSE 89; RESP 16; TEMP 36.8; O2SAT 98; BMI 28.0
== END 2023-03-19 19:32 | disposition home or self-care (01) ==
PROVIDERS: Emergency Provider Student in an Organized Health Care Education/Training Program; PCP Physician Assistant
DX: S39.012A Strain of muscle, fascia and tendon of lower back, initial encounter (principal); X50.9XXA Other and unspecified overexertion or strenuous movements or postures, initial encounter; E11.9 Type 2 diabetes mellitus without complications; I10 Essential (primary) hypertension; Y93.89 Activity, other specified; Y92.9 Unspecified place or not applicable; Y99.0 Civilian activity done for income or pay
CPT/HCPCS: 99282; 99283

== ENCOUNTER 2023-08-05 08:37 | Emergency (ER) | payer OTHER, SELFPAY ==
--- NOTE | ~2023-08-05 | XR_ITS ---
EXAMINATION: XR CHEST CLINICAL INFORMATION: Chest pain COMPARISON: Chest x-ray October 27, 2021 TECHNIQUE: Frontal view of the chest was obtained. FINDINGS: Cardiac silhouette is normal in size. Lungs are mildly hypoinflated. There is no lobar consolidation. No pleural effusion or pneumothorax. XR/XR chest 1V IMPRESSION: No acute pulmonary pathology.
--- NOTE | 2023-08-05 08:39 | ECG_ITS ---
Test Reason : CHEST PAIN Blood Pressure : / mmHG Vent. Rate : 070 BPM Atrial Rate : 070 BPM P-R Int : 140 ms QRS Dur : 072 ms QT Int : 364 ms P-R-T Axes : 021 000 007 degrees QTc Int : 393 ms Normal sinus rhythm Normal ECG When compared with ECG of 26-OCT-2021 19:18, No significant change was found Referred By: Generic ED Physician Electronically Signed By:Blaze Parekh
[2023-08-05 08:52] VITALS: BP 150/86; PULSE 71; RESP 18; TEMP 36.6; O2SAT 98; BMI 28.3
--- NOTE | 2023-08-05 09:18 | ED.CHESTPAIN ---
HPI - Chest Pain General Chief Complaint: Chest Pain Stated Complaint: Chest Pain Time Seen by Provider: 08/05/23 09:17 Source: patient Mode of arrival: ambulatory Limitations: language barrier (Patient's 1st language is Setswana, he does speak Amharic, hot box operator was used) History of Present Illness HPI narrative: 53-year-old male with a history of diabetes mellitus who presents emergency department for evaluation of chest pain. 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 He states that the pain is been intermittent and will last minutes but he has had frequent episodes since onset. He states he was having pain in his neck as well as pain traveling down his left arm to his elbow. The pain was 7/10 at its worst. He did have shortness of breath. He denied lightheadedness, dizziness, diaphoresis, nausea or vomiting associated with the pain. This is the patient's 1st episode of pain. He has not noticed any pain with exertion over the last 1-2 weeks. At the time of my evaluation the patient was having chest pain. He denied fever, chills, rhinorrhea, sore throat, cough, abdominal pain, change in his bowel movements. Related Data Previous Rx's Medication Instructions Recorded blood sugar diagnostic (Accutrend #50 ea 04/08/21 Glucose test strips) lancets 28 gauge (FreeStyle #100 ea 04/08/21 Lancets) needle (disp) 26 gauge 26 gauge x #100 ea 04/08/21 3/8 (BD Intradermal Bevel [place]) cyclobenzaprine 10 mg tablet 10 mg PO TID PRN muscle spasm #15 03/19/23 tabs naproxen 500 mg tablet 500 mg PO BID PRN pain #30 tabs 03/19/23 Allergies Allergy/AdvReac Type Severity Reaction Status Date / Time penicillin V Allergy Unknown Shortness Verified 08/05/23 08:52 of Breath Penicillins [PENICILLINS] Allergy Unknown SHORTNESS Verified 08/05/23 08:52 OF BREATH Review of Systems Review of Systems: Yes all other systems are reviewed and are negative [facility] Past Medical History [facility] Narrative: Past medical history: Diabetes mellitus. Social history: He is a former tobacco smoker he smoked 1 pack per day x8 years he quit smoking 19 years prior. Denies alcohol use. He denies drug use. Medical History Diabetes HTN (hypertension) Social History Social History Alcohol intake: never Smoked in Last 30 Days: No Use of substances other than those prescribed or required for medical reasons: No Advance Directives: No Advance Directives Information Provided: Yes Physical Exam Vital Signs: Vital Signs: Last Vital Signs Temp 97.8 F 08/05/23 11:08 Pulse 66 08/05/23 11:08 Resp 14 08/05/23 11:08 BP 120/67 08/05/23 11:08 Pulse Ox 98 08/05/23 11:08 O2 Del Method Room Air 08/05/23 11:08 BMI result Body Mass Index 28.3 Vital signs revealed an elevated blood pressure of 150/86 otherwise unremarkable pain Exam General: Awake, alert in no distress Head: Normocephalic, atraumatic EENT: PERRL, Lids normal, sclera normal, conjunctiva normal, nose normal , ears normal, throat without erythema or exudates Neck: Supple, no adenopathy, no trachea midline or C-spine tenderness Lung: breath sounds symmetric, no wheezing, rales or rhonchi Chest: symmetric movement, moderate sternal and left anti chest wall tenderness Heart: regular rate and rhythm, normal S1, S2 no murmurs or rubs Abdomen: soft, non-tender, nondistended, normal bowel sounds Back: no vertebral tenderness, no CVAT Extremities: no deformities, moves all extremities symmetrically Neuro: Awake, alert, oriented, normal speech, moves all extremities symmetrically Psych: Pleasant, cooperative Medications Administered Discontinued Medications Generic Name Dose Route Start Last Admin Trade Name Freq PRN Reason Stop Dose Admin Aspirin 324 mg 08/05/23 09:32 08/05/23 09:41 Aspirin 81 Mg Tab.Chew PO 08/05/23 09:33 324 mg ONCE STA Administration Ketorolac Tromethamine 15 mg 08/05/23 09:32 08/05/23 09:42 Ketorolac Tromethamine 15 Mg/Ml Vial IVPUSH 08/05/23 09:33 15 mg ONCE STA Administration Medical Decision Making Medical Decision Making MDM Narrative: 53-year-old male with a history of diabetes mellitus who presents emergency department for evaluation of sudden onset of sternal and left anterior chest pain which she describes as a deep pressure/burning sensation which is been intermittent, lasting minutes but returning frequently since onset. Patient did have associated shortness of breath, the pain did radiate to his neck and down his left arm to his elbow. He had no lightheadedness, dizziness or diaphoresis. He had no nausea or vomiting. Vital signs did reveal an elevated blood pressure. Exam did reveal sternal and left anterior chest wall tenderness otherwise was unremarkable. Following evaluation was ordered: CBC, CMP, PT/INR, PTT, troponin, chest x-ray one view, EKG on arrival and repeat EKG. Patient was treated with the following: Aspirin 324 mg to chew, Toradol 15 mg IV, IV insertion, marble polisher, O2 saturation monitor 15:05 My interpretation patient's laboratory evaluation as follows: CBC was normal. Coags were normal.BUN was elevated at 19. Glucose elevated 168. First troponin was below detectable limits. Repeat troponin was 6.2 which is detectable but not elevated. Chest x-ray revealed no acute disease Patient's 1st and 2nd EKGs were unchanged. Patient did get significant improvement with resolution of his chest pain after receiving IV Toradol. Patient did tell me that he did some heavy labor several days ago but did not injure himself while he was working. Patient's presentation is consistent with musculoskeletal injury/costochondritis. Patient was advised to take ibuprofen for the next 3-4 days for his pain. He was given printed and verbal instructions and discharged home. Differential Diagnosis Differential Diagnoses: The differential diagnosis associated with the presentation includes Differential diagnosis includes was not limited to STEMI, NSTEMI, unstable angina, myocardial ischemia, costochondritis, chest wall pain Admission/Observation Consideration of admission/observation: Escalation of care including admission/observation considered Lab Data MDM Lab Attestation statement: I reviewed the patient's lab results. 08/05/23 09:40 08/05/23 09:40 Labs: Lab Results 08/05/23 08/05/23 Range/Units 09:40 12:53 WBC 6.6 (4.8-10.8) X10*3/uL RBC 4.73 (4.60-5.80) X10*6/uL Hgb 14.6 (14.0-18.0) g/dl Hct 42.6 (42.0-52.0) % MCV 90.1 (80.0-98.0) fL MCH 30.9 (27.0-33.0) pg MCHC 34.3 (31.0-36.0) g/dl RDW 12.6 (11.0-16.0) % Plt Count 227 (160-400) X10*3/uL MPV 10.3 (9.4-12.4) fL Immature Gran % (Auto) 0.3 (0.0-0.4) % Neut % (Auto) 59.1 (45-73) % Lymph % (Auto) 28.9 (20-40) % [place] % (Auto) 7.9 (2-11) % Eos % (Auto) 3.2 (0-4) % Baso % (Auto) 0.6 (0-2) % Lymph # (Auto) 1.9 (1.2-4.9) X10*3/uL [place] # (Auto) 0.5 (0.1-1.2) X10*3/uL Eos # (Auto) 0.2 (0.0-0.4) X10*3/uL Baso # (Auto) 0.0 (0.0-0.2) X10*3/uL Abs Immat Gran (auto) 0.02 (0.00-0.03) X10*3/uL Absolute Neuts (auto) 3.9 (2.0-8.3) x10*3/uL Absolute Nucleated RBC 0.000 (0.0-0.012) X10*3/uL Nucleated RBC % (auto) 0.0 (0.0-0.2) /100WBC PT 11.8 (11.1-13.3) SEC INR 1.0 (0.9-1.1) APTT 31.0 (26.0-36.4) SEC Sodium 140 (135-145) mmol/L Potassium 4.6 (3.3-5.1) mmol/L Chloride 108 (96-108) mmol/L Carbon Dioxide 26 (22-29) mmol/L Anion Gap 11 L (12-20) BUN 19 H (9-16) mg/dL Creatinine 0.82 (0.5-1.4) mg/dL Estim Creat Clear Calc 100.9 Estimated GFR > 60 Random Glucose 168 H (60-115) mg/dL Calcium 8.9 D (8.4-10.2) mg/dL Total Bilirubin 0.3 (0.0-1.0) mg/dL AST 29 (5-37) U/L ALT 47 H (0-40) U/L Alkaline Phosphatase 87 (39-117) U/L Troponin I High Sens < 2.7 6.2 D (<3.5-35.0) ng/L Total Protein 7.1 (6.5-8.0) g/dL Albumin 3.9 (3.5-5.0) g/dL Independent Interpretation I performed an independent interpretation of an: EKG Interpretation: My independent interpretation patient's 12 EKG done at 08:48 hours is as follows: Normal sinus rhythm rate of 70, normal [place] interval, QRS duration and QTC interval, no ST segment elevation, no ST segment depression, inverted T-wave lead 3 and V1, no PACs, no PVCs when compared to EKG dated 10/26/2021 there has no acute change. This is a normal EKG. My independent interpretation of the patient's 2nd EKG done at 10:10 hours is as follows: Normal sinus rhythm rate of 63, normal [place] interval, QRS duration QTC interval, inverted T-wave in lead 3, no ST segment elevation, no ST segment depression, no PACs, no PVCs, this EKG is unchanged compared to the 1st EKG. Radiology Impression Discussion of test interpretation with radiology: I have reviewed the radiologist's reading. Radiologist Impression: XR chest 1V IMPRESSION: No acute pulmonary pathology. Dictated By: Gelacio Cardenas MD Discharge Plan Discharge Clinical Impression: Acute costochondritis Patient Disposition: Home, Self-Care Instructions: Costochondritis (ED) Additional Instructions: Your EKGs were normal. Your marker of heart damage (troponin) was not elevated which is reassuring. You did have tenderness with pushing on your chest and your pain improved with IV Toradol which is a strong anti-inflammatory medication. Your symptoms are consistent with inflammation of the chest. Take ibuprofen 200 mg pills, 2 pills every 6 hours (3 times a day for the next 4-5 days to reduce the inflammation in your chest. Follow-up with your doctor in 2 days. Please return to the emergency department if your symptoms get worse or if you develop any symptoms that are concerning to you. Prescriptions: No Action (DME) lancets [FreeStyle Lancets] 28 gauge misc See Rx Instructions .Route Qty: 100 0RF Rx Instructions: As directed (DME) Accutrend Glucose test strips Strip See Rx Instructions .Route Qty: 50 0RF Rx Instructions: As directed (DME) BD Intradermal Bevel [place] 26 gauge x 3/8 needle See Rx Instructions .Route Qty: 100 0RF Rx Instructions: As directed naproxen 500 mg tablet 500 mg PO BID PRN (Reason: pain) Qty: 30 0RF cyclobenzaprine 10 mg tablet 10 mg PO TID PRN (Reason: muscle spasm) Qty: 15 0RF
[2023-08-05 09:23] VITALS: BP 132/78; PULSE 78; PULSE 81; RESP 19; O2SAT 99
--- NOTE | 2023-08-05 09:25 | PC.NURSE ---
Pt alert and oriented, answering questions appropriately. Airway patent, breathing even and unlabored. Skin warm and dry. Pt reports chest pain radiating to left upper arm starting this morning on his drive to work. Pt describes the pain as intermittent, pressure with burning. Pt reports pain 7/10. Pt reports associated headache and SOB, both intermittent. No acute resp distress. 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
--- NOTE | 2023-08-05 09:32 | ECG_ITS ---
Test Reason : chest pain Blood Pressure : / mmHG Vent. Rate : 063 BPM Atrial Rate : 063 BPM P-R Int : 124 ms QRS Dur : 066 ms QT Int : 366 ms P-R-T Axes : 007 -06 -02 degrees QTc Int : 374 ms Normal sinus rhythm Septal infarct , age undetermined Abnormal ECG When compared with ECG of 05-AUG-2023 08:48, No significant change was found Referred By: Noah Cabrera Electronically Signed By:Blaze Parekh
[2023-08-05] MEDS: Aspirin 81 MG TAB.CHEW 324 MG PO (09:41)
[2023-08-05] MEDS: Ketorolac Tromethamine 15 MG/ML VIAL IVPUSH (09:42)
[2023-08-05 09:44] LABS: MANUAL DIFF FLAG NO
[2023-08-05 09:46] LABS: Basophils Percent Auto 0.6 % (0-2); Eosinophils Absolute Auto 0.2 X10*3/uL (0.0-0.4); Eosinophils Percent Auto 3.2 % (0-4); Hematocrit 42.6 % (42.0-52.0); Hemoglobin 14.6 g/dl (14.0-18.0); Imm Gran Abs Auto 0.02 X10*3/uL (0.00-0.03); Imm Gran Pct Auto 0.3 % (0.0-0.4); Lymphocytes Absolute Auto 1.9 X10*3/uL (1.2-4.9); Lymphocytes Percent Auto 28.9 % (20-40); Mean Corpuscular HGB Conc 34.3 g/dl (31.0-36.0); Mean Corpuscular Hemoglobin 30.9 pg (27.0-33.0); Mean Corpuscular Volume 90.1 fL (80.0-98.0); Mean Platelet Volume 10.3 fL (9.4-12.4); Monocytes Absolute Auto 0.5 X10*3/uL (0.1-1.2); Monocytes Percent Auto 7.9 % (2-11); Neutrophils Absolute Auto 3.9 x10*3/uL (2.0-8.3); Neutrophils Percent Auto 59.1 % (45-73); Platelet Count 227 X10*3/uL (160-400); Red Blood Count 4.73 X10*6/uL (4.60-5.80); Red Cell Distribution Width 12.6 % (11.0-16.0); White Blood Count 6.6 X10*3/uL (4.8-10.8)
[2023-08-05 09:51] LABS: Prothrombin Time 11.8 SEC (11.1-13.3)
[2023-08-05 10:00] LABS: Alanine Aminotransferase 47 U/L (0-40); Albumin Level 3.9 g/dL (3.5-5.0); Alkaline Phosphatase 87 U/L (39-117); Anion Gap 11 (12-20); Aspartate Amino Transferase 29 U/L (5-37); Bilirubin Total 0.3 mg/dL (0.0-1.0); Blood Urea Nitrogen 19 mg/dL (9-16); Calcium 8.9 mg/dL (8.4-10.2); Carbon Dioxide 26 mmol/L (22-29); Chloride 108 mmol/L (96-108); Creatinine Clr Calc Pharmacy 100.9; Estimated Glomerular Filt Rate > 60; Glucose Random 168 mg/dL (60-115); Potassium 4.6 mmol/L (3.3-5.1); Sodium 140 mmol/L (135-145); Total Protein 7.1 g/dL (6.5-8.0)
[2023-08-05 10:10] LABS: Troponin-I High Sensitivity < 2.7 ng/L (<3.5-35.0)
[2023-08-05 11:08] VITALS: BP 120/67; PULSE 66; RESP 14; TEMP 36.6; O2SAT 98
--- NOTE | 2023-08-05 11:10 | PC.NURSE ---
Pt alert and oriented, resting in bed. Breathing even and unlabored. Pt reports pain is now 0/10 and feels much better overall. Vitals stable, NSR on bedside monitor. at the bedside.
[2023-08-05 13:20] LABS: Troponin-I High Sensitivity 6.2 ng/L (<3.5-35.0)
== END 2023-08-05 15:32 | disposition home or self-care (01) ==
PROVIDERS: Emergency Provider Emergency Medicine Emergency Medical Services
DX: M94.0 Chondrocostal junction syndrome [Tietze] (principal); E11.9 Type 2 diabetes mellitus without complications; I10 Essential (primary) hypertension
CPT/HCPCS: 36415; 71045; 80053; 84484; 85025; 85610; 85730; 93005; 99283; 99285; J1885

== ENCOUNTER → 2023-08-05 08:39 | Outpatient (BNV) | payer OTHER, SELFPAY | PROVIDERS: Emergency Provider Emergency Medicine Emergency Medical Services; Visit Provider Internal Medicine Cardiovascular Disease | DX: R07.9 Chest pain, unspecified (principal) | CPT/HCPCS: 93010 ==

== ENCOUNTER 2023-11-16 09:33 | Emergency (ER) | payer OTHER, SELFPAY ==
--- NOTE | ~2023-11-16 | XR_ITS ---
EXAMINATION: XR CHEST CLINICAL INFORMATION: Cough COMPARISON: Chest x-ray August 05, 2023 TECHNIQUE: 2 views of the chest were obtained. FINDINGS: Cardiac silhouette is normal in size. The lungs are well aerated. There is no lobar consolidation. No pleural effusion or pneumothorax. No acute osseous abnormality. XR/XR chest 2V IMPRESSION: No acute pulmonary pathology.
[2023-11-16 09:41] VITALS: BP 147/96; PULSE 93; RESP 16; TEMP 37.1; O2SAT 98; BMI 28.3
--- NOTE | 2023-11-16 09:50 | ED_ITS ---
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 Related Data Previous Rx's ?Medication ?Instructions ?Recorded blood sugar diagnostic (Accutrend #50 ea 04/08/21 Glucose test strips) lancets 28 gauge (FreeStyle #100 ea 04/08/21 Lancets) needle (disp) 26 gauge 26 gauge x #100 ea 04/08/21 3/8 (BD Intradermal Bevel [place]) cyclobenzaprine 10 mg tablet 10 mg PO TID PRN muscle spasm #15 03/19/23 tabs naproxen 500 mg tablet 500 mg PO BID PRN pain #30 tabs 03/19/23 Allergies Allergy/AdvReac Type Severity Reaction Status Date / Time penicillin V Allergy Unknown Shortness Verified 11/16/23 09:44 of Breath Penicillins [PENICILLINS] Allergy Unknown SHORTNESS Verified 11/16/23 09:44 OF BREATH Review of Systems Review of Systems: Constitutional: No fever, chills, fatigue, night sweats, weight changes ENT/Mouth: No ear pain, hearing loss, nasal congestion, sinus pain, rhinorrhea, +sore throat, +odynophagia, No dysphagia Eyes: No eye pain, swelling, redness, vision changes, discharge Cardio: No chest pain, palpitations, SUAREZ, orthopnea, peripheral edema Pulm: No SOB, cough, sputum, wheezing, dyspnea, hemoptysis GI: No nausea, vomiting, hematemesis, abdominal pain, diarrhea, constipation, hematochezia, melena : No irregular bleeding, dysuria, frequency, urgency, hesitancy, hematuria, f lank pain MSK: No back pain, neck pain, joint pain, myalgias Skin: No lesions, rashes Neuro: No weakness, numbness, paresthesias, LOC, dizziness, headache All other systems reviewed and are negative. [facility] Past Medical History Attestation statement: The following information was validated with the patient. Source: old records reviewed and nursing notes reviewed Medical History Diabetes HTN (hypertension) Social History Social History Alcohol intake: never Do you have a plan to hurt others: No Plan Physical Exam Vital Signs: Vital Signs: Last Vital Signs Temp 98.6 F 11/16/23 10:05 Pulse 81 11/16/23 10:05 Resp 19 11/16/23 10:05 BP 130/90 H 11/16/23 10:05 Pulse Ox 96 11/16/23 10:05 O2 Del Method Room Air 11/16/23 10:05 BMI result Body Mass Index 28.3 Const: General: cooperative, healthy appearing, comfortable, no acute distress, alert and awake Orientation/consciousness: patient oriented x3 Limitations: no limitations HEENT: Head: Yes normal to inspection, Yes normocephalic and Yes atraumatic Ears: hearing grossly normal bilaterally, external ears normal, TM's normal bilaterally, EAC's normal, mastoids normal and no periauricular adenopathy General nose exam: Normal external nose present and No nasal discharge present Face and sinus: Yes normal facial exam and Yes sinuses nontender Eyes: General: appearance normal, both eyes and all related structures Pupils: Equal, round and reactive pupils present Neck: Neck: Yes normal visual inspection and Yes full ROM Resp: Effort & Inspection: normal respiratory effort and able to speak in complete sentences Auscultation: clear to auscultation bilaterally Cardio: Rate: regular rate Rhythm: regular rhythm GI: Inspection: Yes normal to inspection Palpation (GI): Soft to palpation and nontender Skin: General skin exam: no rashes or lesions noted Neuro: General: patient oriented x3, gait normal and moves all extremities Cranial nerves: Yes Equal, round and reactive pupils present Extrem: General: Yes normal to inspection Medical Decision Making Medical Decision Making MDM Narrative: Clinical concern for strep throat, mono, viral syndrome. Unlikely COURT USHER, retropharyngeal abscess, dental abscess, epiglottis, acute respiratory distress, pneumonia. Differential Diagnosis Differential Diagnoses: The differential diagnosis associated with the presentation includes as above. Admission/Observation Not indicated Lab Data MDM Lab Attestation statement: I reviewed the patient's lab results. as above External Record Review External record reviewed: Inpatient record Prescription Management I considered prescription management with: Pain Medication and Antibiotic Critical Care Time Critical Care Time Critical Care Time: No Discharge Plan Discharge Prescriptions: No Action (DME) lancets [FreeStyle Lancets] 28 gauge misc See Rx Instructions .Route Qty: 100 0RF Rx Instructions: As directed (DME) Accutrend Glucose test strips Strip See Rx Instructions .Route Qty: 50 0RF Rx Instructions: As directed (DME) BD Intradermal Bevel [place] 26 gauge x 3/8 needle See Rx Instructions .Route Qty: 100 0RF Rx Instructions: As directed naproxen 500 mg tablet 500 mg PO BID PRN (Reason: pain) Qty: 30 0RF cyclobenzaprine 10 mg tablet 10 mg PO TID PRN (Reason: muscle spasm) Qty: 15 0RF Print Language: Monegasque
[2023-11-16 10:05] VITALS: BP 130/90; PULSE 81; RESP 19; TEMP 37; O2SAT 96
[2023-11-16 10:17] VITALS: RESP 19; O2SAT 96
[2023-11-16 10:34] LABS: IDNOW Serial# 58CA691E; Strep A Nucleic Acid Negative (Negative)
--- NOTE | 2023-11-16 10:38 | ED.URI ---
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 MD elicited complaint: cough, sore throat and rhinorrhea Onset (ago): day(s) (3) Consistency: constant Severity: moderate Description of mucous: green Able to tolerate fluids by mouth: Yes Exacerbating factors: swallowing and other (coughing) Relieving factors: nothing Associated symptoms: chills, rhinorrhea, sore throat and cough Treatments prior to arrival: none Related Data Previous Rx's ?Medication ?Instructions ?Recorded blood sugar diagnostic (Accutrend #50 ea 04/08/21 Glucose test strips) lancets 28 gauge (FreeStyle #100 ea 04/08/21 Lancets) needle (disp) 26 gauge 26 gauge x #100 ea 04/08/21 3/8 (BD Intradermal Bevel [place]) cyclobenzaprine 10 mg tablet 10 mg PO TID PRN muscle spasm #15 03/19/23 tabs naproxen 500 mg tablet 500 mg PO BID PRN pain #30 tabs 03/19/23 albuterol sulfate 90 mcg/actuation 2 puff inhalation QID PRN 11/16/23 aerosol inhaler shortness of breath or wheezing #6.7 grams azithromycin 250 mg tablet See Rx Instructions PO .COMPLEX #6 11/16/23 tabs benzonatate 100 mg capsule 100 mg PO TID PRN cough #20 caps 11/16/23 Allergies Allergy/AdvReac Type Severity Reaction Status Date / Time penicillin V Allergy Unknown Shortness Verified 11/16/23 09:44 of Breath Penicillins [PENICILLINS] Allergy Unknown SHORTNESS Verified 11/16/23 09:44 OF BREATH Review of Systems Review of Systems: Constitutional : No Fever, pos Chills ENT/Mouth : No Hoarseness, pos sore throat, pos Rhinorrhea Eyes: No Redness, No Discharge, No Vision Changes Cardiovascular : No Chest Pain, no SOB, no Dyspnea on Exertion, No Edema Respiratory : positive Cough, pos Sputum, no Wheezing, Gastrointestinal : No Nausea, No Vomiting, No Diarrhea, No abdominal Pain Genitourinary : No Dysuria, No Hematuria Musculoskeletal : No joint pain, No Myalgias Skin : No rash Neuro : No Weakness, No Numbness, No Headache Psych : No anxiety, depression All other systems reviewed and are negative [facility] Past Medical History Attestation statement: The following information was validated with the patient. Source: old records reviewed Medical History HTN (hypertension) Diabetes Social History Social History (Updated 11/16/23 @ 10:42 by Jessica Edwards DO) Alcohol intake: never Patient Tobacco Use Status: Never used Tobacco Smoked in Last 30 Days: No Use of substances other than those prescribed or required for medical reasons: No Advance Directives: No Advance Directives Information Provided: Yes Do you have a plan to hurt others: No Plan Physical Exam Vital Signs: Vital Signs: Last Vital Signs Temp 98.6 F 11/16/23 10:05 Pulse 81 11/16/23 10:05 Resp 19 11/16/23 10:17 BP 130/90 H 11/16/23 10:05 Pulse Ox 96 11/16/23 10:17 O2 Del Method Room Air 11/16/23 10:17 BMI result Body Mass Index 28.3 Appearance: Alert. Oriented X3. No acute distress. Eyes: Pupils equal, round and reactive to light. ENT: Pharynx mild erythema Neck: Normal inspection. Neck supple. CVS: Normal heart rate and rhythm. Pulses normal. Respiratory: No respiratory distress. Breath sounds slightly diminished. Abdomen: Soft and nontender. Skin: Skin warm and dry. Normal skin color. Normal skin turgor. Extremities: No lower extremity edema. No calf ttp Neuro: Oriented X 3. No motor deficit. No sensory deficit. Medications Administered Discontinued Medications Generic Name Dose Route Start Last Admin Trade Name Freq PRN Reason Stop Dose Admin Albuterol Sulfate 2 puff 11/16/23 10:15 11/16/23 10:40 Albuterol Sulfate 90 Mcg 8 Gm Inhaler INHALE 11/16/23 10:16 2 puff ONCE ONE Administration Guaifenesin/Codeine Phosphate 5 ml 11/16/23 10:15 11/16/23 10:40 Guaifen/Codeine Sf 200/20/10ml 10 Ml Liquid PO 11/16/23 10:16 5 ml ONCE ONE Administration Medical Decision Making Medical Decision Making [facility] Narrative: 53 yo male with PMH of DM here with c/o URI symptoms and cough x 3 days at this time viral panel ordered, CXR, albuterol INH, cough medicine - no hypoxia or resp distress, not toxic suspect mucopurulent bronchitis Differential Diagnosis Differential Diagnoses: The differential diagnosis associated with the presentation includes viral syndrome, bronchitis, pneumonia Admission/Observation Consideration of admission/observation: Escalation of care including admission/observation considered Lab Data [facility] Lab Attestation statement: I reviewed the patient's lab results. Labs: Lab Results 11/16/23 Range/Units 10:09 Influenza Type A (PCR) NEGATIVE (Negative) Influenza Type B (PCR) NEGATIVE (Negative) RSV RNA Qual (PCR) NEGATIVE (Negative) SARS-CoV-2 RNA (RT-PCR) NEGATIVE (Negative) S. pyogenes GrpA TERI Negative (Negative) Independent Interpretation I performed an independent interpretation of an: Plain X-Ray (no pneumonia) Radiology Impression Discussion of test interpretation with radiology: I have reviewed the radiologist's reading. Independent Historian Clinical information obtained from an independent historian. History obtained from or confirmed by: Spouse External Record Review External record reviewed: Office record Prescription Management I considered prescription management with: Antibiotic and Other Discharge Plan Discharge Clinical Impression: Bronchitis Patient Disposition: Home, Self-Care Instructions: Acute Bronchitis (ED) Additional Instructions: return for worsening symptom - difficulty breathing, increased pain, weakness or any other concerns no pneumonia on chest xray no covid flu rsv no strep throat Prescriptions: New azithromycin 250 mg tablet See Rx Instructions .ROUTE .COMPLEX Qty: 6 0RF Rx Instructions: For 250 mg dose pack: take 500 mg today (day 1), then 250 mg for 4 days (days 2-5) albuterol sulfate 90 mcg/actuation HFA aerosol inhaler 2 puff inhalation QID PRN (Reason: shortness of breath or wheezing) Qty: 6.7 0RF benzonatate 100 mg capsule 100 mg PO TID PRN (Reason: cough) Qty: 20 0RF Rx Instructions: keep away from children No Action (DME) lancets [FreeStyle Lancets] 28 gauge misc See Rx Instructions .Route Qty: 100 0RF Rx Instructions: As directed (DME) Accutrend Glucose test strips Strip See Rx Instructions .Route Qty: 50 0RF Rx Instructions: As directed (DME) BD Intradermal Bevel [place] 26 gauge x 3/8 needle See Rx Instructions .Route Qty: 100 0RF Rx Instructions: As directed naproxen 500 mg tablet 500 mg PO BID PRN (Reason: pain) Qty: 30 0RF cyclobenzaprine 10 mg tablet 10 mg PO TID PRN (Reason: muscle spasm) Qty: 15 0RF Stand Alone Forms: Work/School Release Print Language: Bengali
[2023-11-16] MEDS: Albuterol Sulfate 90 MCG 8 GM INHALER 2 PUFF INHALE (10:40)
[2023-11-16] MEDS: guaiFEN/Codeine SF 200/20/10ML 10 ML LIQUID 5 ML PO (10:40)
[2023-11-16 11:02] LABS: Influenza A PCR NEGATIVE (Negative); Influenza B PCR NEGATIVE (Negative); Resp Syncy Virus RNA Qual PCR NEGATIVE (Negative); SARS COV2 PCR INHOUSE NEGATIVE (Negative)
[2023-11-16] MEDS: Acetaminophen 325 MG TABLET 975 MG PO (11:40)
[2023-11-16 11:57] VITALS: BP 134/95; PULSE 84; RESP 20; TEMP 36.6; O2SAT 98
== END 2023-11-16 11:58 | disposition home or self-care (01) ==
PROVIDERS: Emergency Provider Emergency Medicine; PCP Registered Nurse
DX: J40 Bronchitis, not specified as acute or chronic (principal); E11.9 Type 2 diabetes mellitus without complications; I10 Essential (primary) hypertension; Z11.52 Encounter for screening for COVID-19
CPT/HCPCS: 0241U; 71046; 87651; 99284

== ENCOUNTER 2024-04-26 07:00 | Outpatient (REF) | payer BC, SELFPAY ==
--- NOTE | ~2024-04-26 | XR_ITS ---
EXAMINATION: XR HAND, LEFT CLINICAL INFORMATION: Pain in finger of left hand COMPARISON: None available. TECHNIQUE: PA, lateral, and oblique views of the left hand. FINDINGS: The bones and soft tissues are normal. No fracture. Alignment is anatomic. Joint spaces are maintained. No erosions or soft tissue calcifications. XR/XR hand LT min 3V IMPRESSION: Normal left hand. Electronically signed by: Obinna Yi MD 05/02/2024 11:36 AM EDT
[2024-04-26 07:22] LABS: MANUAL DIFF FLAG NO
[2024-04-26 07:55] LABS: Basophils Absolute Auto 0.1 X10*3/uL (0.0-0.2); Basophils Percent Auto 0.8 % (0-2); Eosinophils Absolute Auto 0.2 X10*3/uL (0.0-0.4); Eosinophils Percent Auto 2.5 % (0-4); Hematocrit 47.2 % (42.0-52.0); Imm Gran Abs Auto 0.02 X10*3/uL (0.00-0.03); Imm Gran Pct Auto 0.3 % (0.0-0.4); Lymphocytes Absolute Auto 2.8 X10*3/uL (1.2-4.9); Lymphocytes Percent Auto 35.5 % (20-40); Mean Corpuscular HGB Conc 33.9 g/dl (31.0-36.0); Mean Corpuscular Hemoglobin 30.8 pg (27.0-33.0); Mean Corpuscular Volume 90.8 fL (80.0-98.0); Mean Platelet Volume 10.6 fL (9.4-12.4); Monocytes Absolute Auto 0.6 X10*3/uL (0.1-1.2); Monocytes Percent Auto 7.5 % (2-11); Neutrophils Absolute Auto 4.3 x10*3/uL (2.0-8.3); Neutrophils Percent Auto 53.4 % (45-73); Platelet Count 258 X10*3/uL (160-400); Red Cell Distribution Width 13.2 % (11.0-16.0)
[2024-04-26 08:05] LABS: Estimated Average Glucose 226 mg/dL; Hemoglobin A1C 305.1635 umol/L; Hemoglobin A1c % 9.5 % (<6.0); Total Hemoglobin (HGBA1C) 3811.6656 umol/L
[2024-04-26 08:16] LABS: Creatinine Urine 205.94 mg/dL; Microalbum/Creatinine Ratio Ur 9.7 ug/mg cr (<30)
[2024-04-26 08:27] LABS: Alanine Aminotransferase 46 U/L (0-40); Albumin Level 4.1 g/dL (3.5-5.0); Alkaline Phosphatase 98 U/L (39-117); Anion Gap 12 (12-20); Aspartate Amino Transferase 32 U/L (5-37); Bilirubin Total 0.4 mg/dL (0.0-1.0); Blood Urea Nitrogen 18 mg/dL (9-16); Calcium 9.4 mg/dL (8.4-10.2); Carbon Dioxide 29 mmol/L (22-29); Chloride 104 mmol/L (96-108); Cholesterol 165 mg/dL (<200); Estimated Glomerular Filt Rate > 60; Glucose Random 98 mg/dL (60-115); HDL Cholesterol 38 mg/dL (>40); LDL Cholesterol Calculated 108 mg/dL (<100); Magnesium 1.9 mg/dL (1.6-2.6); Potassium 3.5 mmol/L (3.3-5.1); Sodium 141 mmol/L (135-145); Total Protein 7.4 g/dL (6.5-8.0); Triglycerides 95 mg/dL (<150)
[2024-04-26 08:42] LABS: TSH reflex Free T4 3.01 uIU/mL (0.32-4.0); Vitamin D 25-OH Total 16.5 ng/mL (>30)
[2024-04-26 08:47] LABS: Prostate Specific Antigen 0.72 ng/mL (<0.05-4.0); Vitamin B12 463 pg/mL (200-900)
[2024-04-26 09:42] LABS: CT PCR NOT DETECTED (Not Detect.); NG PCR NOT DETECTED (Not Detect.)
[2024-04-27 08:28] LABS: HBS Num1 307.83 mIU/mL (0-7.99); HBc Num1 3.38 S/CO (0.00-0.79); HBsAGNum1 0.46 S/CO (0.00-0.99); HIV AB/AG Nonreactive (Nonreactive); HIV Num 1 0.06 S/CO (0.00-0.99); Hepatitis B Surface Antigen Negative (Negative); ~Hepatitis B Surface Antibody REACTIVE (Nonreactive)
[2024-04-27 10:11] LABS: HBc Num2 3.21 S/CO; HBc Num3 3.37 S/CO; Hepatitis B Core Antibody Reactive (Nonreactive)
[2024-04-28 10:37] LABS: RPR Rapid Plasma Reagin NON-REACTIVE (NON-REACTIVE)
[2024-04-28 14:53] LABS: HCV Log PCR <1.18 NOT DETECTED Log IU/mL (NOT DETECTED); HepC Viral Load <15 NOT DETECTED IU/mL (NOT DETECTED)
[2024-04-30 00:53] LABS: Hepatitis B Core Antibody IgM NON-REACTIVE (NON-REACTIVE)
== END 2024-04-26 07:01 | disposition home or self-care (01) ==
LOC: HO.XRAY 07:00
PROVIDERS: PCP Registered Nurse; Visit Provider Registered Nurse
DX: Z00.00 Encounter for general adult medical examination without abnormal findings (principal); E11.9 Type 2 diabetes mellitus without complications; M79.645 Pain in left finger(s); Z12.5 Encounter for screening for malignant neoplasm of prostate
CPT/HCPCS: 73130; 80053; 80061; 82043; 82306; 82570; 82607; 83036; 83735; 84153; 84443; 85025; 86592; 86704; 86705; 86706; 87340; 87389; 87491; 87522; 87591

== ENCOUNTER 2024-05-27 15:40 | Emergency (ER) | payer BC, SELFPAY ==
--- NOTE | 2024-05-27 15:48 | ED_ITS ---
HPI - URI/Sore Throat General Chief Complaint: Upper Respiratory Symptoms Stated Complaint: headache,congestion Time Seen by Provider: 05/27/24 16:03 Source: patient, RN notes reviewed and old records reviewed Mode of arrival: ambulatory History of Present Illness ED Provider: Michelle Graham PA-C [facility] Narrative: 53-year-old male w/PMHx DM presenting to the ED c/o congestion, ear pressure, hearing loss x1 mos. Admits to similar symptoms a few years ago which resolved with the antibiotics. Denies fever, pain, drainage from ears, trauma Related Data Previous Rx's ?Medication ?Instructions ?Recorded blood sugar diagnostic (Accutrend #50 ea 04/08/21 Glucose test strips) lancets 28 gauge (FreeStyle #100 ea 04/08/21 Lancets) needle (disp) 26 gauge 26 gauge x #100 ea 04/08/21 3/8 (BD Intradermal Bevel [place]) cyclobenzaprine 10 mg tablet 10 mg PO TID PRN muscle spasm #15 03/19/23 tabs naproxen 500 mg tablet 500 mg PO BID PRN pain #30 tabs 03/19/23 albuterol sulfate 90 mcg/actuation 2 puff inhalation QID PRN 11/16/23 aerosol inhaler shortness of breath or wheezing #6.7 grams azithromycin 250 mg tablet See Rx Instructions PO .COMPLEX #6 11/16/23 tabs benzonatate 100 mg capsule 100 mg PO TID PRN cough #20 caps 11/16/23 doxycycline hyclate 100 mg tablet 100 mg PO BID 7 days #14 tabs 05/27/24 Allergies Allergy/AdvReac Type Severity Reaction Status Date / Time penicillin V Allergy Unknown Shortness Verified 05/27/24 15:50 of Breath Penicillins [PENICILLINS] Allergy Unknown SHORTNESS Verified 05/27/24 15:50 OF BREATH Review of Systems Review of Systems: Yes all other systems are reviewed and are negative Constitutional: Constitutional: Reports as per [facility] Past Medical History Attestation statement: The following information was validated with the patient. Source: old records reviewed Medical History HTN (hypertension) Diabetes Social History Social History Alcohol intake: never Patient Tobacco Use Status: Never used Tobacco Physical Exam Vital Signs: Vital Signs: Last Vital Signs Temp 97.4 F 05/27/24 15:49 Pulse 98 05/27/24 15:49 Resp 20 05/27/24 15:49 BP 123/83 05/27/24 15:49 Pulse Ox 98 05/27/24 15:49 O2 Del Method Room Air 05/27/24 15:49 BMI result Body Mass Index 28.3 Const: General: cooperative, healthy appearing and no acute distress Orientation/consciousness: patient oriented x3 Limitations: no limitations HEENT: Head: Yes normal to inspection and Yes atraumatic Ears: hearing grossly abnormal bilaterally and TM abnormal bulging bilateral, dull bilateral and with fluid behind the TM bilateral; not erythematous General nose exam: Normal external nose present Face and sinus: Yes normal facial exam Mouth: no drooling Throat: Yes posterior oropharynx normal, Yes tonsils normal, Yes uvula midline, No peritonsillar mass, No uvula laterally displaced and No uvular edema Eyes: General: appearance normal, both eyes and all related structures EOM: EOMs intact bilaterally Neck: Neck: Yes normal visual inspection and Yes no meningeal signs Resp: Effort & Inspection: normal respiratory effort and no respiratory distress Cardio: Rate: regular rate Skin: Rashes: no rashes Wounds: no wounds Neuro: General: patient oriented x3, tone normal and no meningeal signs Cranial nerves: Yes CN's II-XII intact bilaterally Gait exam (Neuro): Normal gait present Extrem: General: Yes normal to inspection Course Course Course Narrative: Viral studies negative Results discussed with patient including worrisome signs and symptoms and strict return precautions, and when to return to the emergency department. They verbalized understanding and feel safe for discharge at this time. Medical Decision Making Medical Decision Making MDM Narrative: 53-year-old male w/PMHx DM presenting to the ED c/o congestion, ear pressure, hearing loss x1 mos. Admits to similar symptoms a few years ago which resolved with the antibiotics. On exam vital signs stable, NAD, nontoxic appearing, bilateral TMs with mild bulging, dullness and fluid behind TM. No mastoid tenderness. No erythema. Oropharynx WNL. Concern for effusion vs acute otitis media. Low suspicion for mastoiditis, otitis externa, tumor. No evidence of cerumen impaction Plan: COVID/FLU/RSV Please refer to course for remaining clinical decision making, interpretation of labs/imaging results, and discussions with consultants and/or family members. Differential Diagnosis Differential Diagnoses: The differential diagnosis associated with the p resentation includes As above Lab Data MDM Lab Attestation statement: I reviewed the patient's lab results. Labs: Lab Results 05/27/24 Range/Units 16:17 Influenza Type A (PCR) NEGATIVE (Negative) Influenza Type B (PCR) NEGATIVE (Negative) RSV RNA Qual (PCR) NEGATIVE (Negative) SARS-CoV-2 RNA (RT-PCR) NEGATIVE (Negative) External Record Review External record reviewed: Inpatient record, Office record, Outpatient record, Prior outpatient labs, Prior outpatient radiology, Primary care record and Outside ED record Tests considered The following testing was considered but not selected: As above Prescription Management I considered prescription management with: Pain Medication and Antibiotic Social Determinants Patient?s care significantly limited by Social Determinants of Health including: Other Social Determinant of Health Discharge Plan Discharge Clinical Impression: Middle ear effusion Patient Disposition: Home, Self-Care Instructions: Ear Infection (ED) Additional Instructions: You have middle ear effusions Doxycycline as an antibiotic please take as prescribed Please follow-up with your doctor as well as an ENT specialist. Please call to make an appointment If her symptoms persist or worsen you develop fever, drainage from the ears, complete hearing loss return to the emergency department Prescriptions: New doxycycline hyclate 100 mg tablet 100 mg PO BID 7 Days Qty: 14 0RF No Action (DME) lancets [FreeStyle Lancets] 28 gauge misc See Rx Instructions .Route Qty: 100 0RF Rx Instructions: As directed (DME) Accutrend Glucose test strips Strip See Rx Instructions .Route Qty: 50 0RF Rx Instructions: As directed (DME) BD Intradermal Bevel [place] 26 gauge x 3/8 needle See Rx Instructions .Route Qty: 100 0RF Rx Instructions: As directed naproxen 500 mg tablet 500 mg PO BID PRN (Reason: pain) Qty: 30 0RF cyclobenzaprine 10 mg tablet 10 mg PO TID PRN (Reason: muscle spasm) Qty: 15 0RF azithromycin 250 mg tablet See Rx Instructions .ROUTE .COMPLEX Qty: 6 0RF Rx Instructions: For 250 mg dose pack: take 500 mg today (day 1), then 250 mg for 4 days (days 2-5) albuterol sulfate 90 mcg/actuation HFA aerosol inhaler 2 puff inhalation QID PRN (Reason: shortness of breath or wheezing) Qty: 6.7 0RF benzonatate 100 mg capsule 100 mg PO TID PRN (Reason: cough) Qty: 20 0RF Rx Instructions: keep away from children Referrals: [facility] [Outside] Micah Mejia [Physician] - Physician,Unknown J [Primary Care Provider] - Print Language: Armenian
[2024-05-27 15:49] VITALS: BP 123/83; PULSE 98; RESP 20; TEMP 36.3; O2SAT 98; BMI 28.3
[2024-05-27 17:17] LABS: Influenza A PCR NEGATIVE (Negative); Influenza B PCR NEGATIVE (Negative); Resp Syncy Virus RNA Qual PCR NEGATIVE (Negative); SARS COV2 PCR INHOUSE NEGATIVE (Negative)
[2024-05-27 17:23] VITALS: BP 123/83; PULSE 98; RESP 20; TEMP 36.3; O2SAT 98
== END 2024-05-27 17:24 | disposition home or self-care (01) ==
LOC: HO.ED 17:22
PROVIDERS: Physician Assistant; Emergency Provider Emergency Medicine; PCP Physician Assistant
DX: H91.93 Unspecified hearing loss, bilateral (principal); R09.89 Other specified symptoms and signs involving the circulatory and respiratory systems; R51.9 Headache, unspecified; Z03.818 Encounter for observation for suspected exposure to other biological agents ruled out
CPT/HCPCS: 0241U; 99282; 99283

== ENCOUNTER 2024-06-25 09:42 | Outpatient (REF) | payer BC, SELFPAY | END 2024-06-25 09:43 | disposition home or self-care (01) | LOC: HO.HOSX 09:42 | DX: Z13.89 Encounter for screening for other disorder (principal) ==

== ENCOUNTER 2024-08-10 10:22 | Outpatient (REF) | payer OTHER, SELFPAY ==
--- OUTSIDE RECORDS SUMMARY | 2024-08-10 11:17 | XMS_ITS | Encounter Summary ---
Demographics Address [address] [place] [address] [address] [place] [address] Mobile Phone Home Phone Email Address Preferred Language es Marital Status Samaritan Affiliation Unknown Race White Ethnic Group or Author Organization [employer] Address [address] [place] [address] Care Team Providers Care Optical Systems Engineer Name Role Phone Geetha Matos MD Primary Care Pro vider Nica Martínez Primary Care Provider [phone] Reason for Visit * Reason Comments Med Refill Encounter Details Date Type Department Care Team ([facility] st Contact Info) Description 04/09/2023 Refill [facility] [address] [place] [address] Nica Martínez FNP [address] [place], [place] [id number] Social History Tobacco Use Types Packs/Day Years Used Date Smoking Tobacco: Never Smokeless Tobacco: Never Alcohol Use Standard Drinks/Week Comments Never 0 (1 standard drink = 0.6 oz pur e alcohol) Sex and Gender Information Value Date Recorded Sex Assigned at Male 05/13/2022 10:33 AM EDT Legal Sex Male 10:33 AM EDT Gender Identity Male 05/13/2022 10:33 AM EDT Sexual Orientation Straight 05/13/2022 10 :33 AM EDT documented as of this encounter Plan of Treatment Not on file documented as of this encounter Visit Diagnoses Not on filedocumented in this encounter Care Teams Optical Systems Engineer Relationship Specialty Start Date End Date Geetha Matos MD [address] [place] [address] PCP - General Internal Medicine 01/29/23 05/19/23 Nica Martínez FNP [address] [place] [address] PCP - General Family Medicine 05/20/23 documented as of this encounter
--- OUTSIDE RECORDS SUMMARY | 2024-08-10 11:17 | XMS_ITS | Encounter Summary ---
Demographics Address [address] [place] [address] [address] [place] [address] Mobile Phone Home Phone Email Address Preferred Language es Marital Status Sikh Affiliation Unknown Race White Ethnic Group or Author Organization [employer] Address [address] [place] [address] Care Team Providers Care Drum Dyeing Machine Operator Name Role Phone Nica Martínez Primary Care Provider [phone] Reason for Visit * Reason Comments Med Refill Encounter Details Date Type Department Care Team ([facility] st Contact Info) Description 07/26/2024 Refill [facility] [address] [place], [place] [phone] Nica Martínez FNP [address] [place], [place] [phone] Type 2 diabetes mellitus with right eye affected by mild nonproliferative retinopathy without macular edema, with long-term current use of insulin ([facility]) Social History Tobacco Use Types Packs/Day Years Used Date Smoking Tobacco: Never Smokeless Tobacco: Never Alcohol Use Standard Drinks/Week Comments Never 0 (1 standard drink = 0.6 oz pur e alcohol) Depression Answer Date Recorded Patient Health Questionnaire-9 Score 8 05/21/2024 Patient Health Questionnaire-9 Score 8 05/21/2024 Last PHQ-9: Questionnaire Data Not on file 1 07/21/2023 Housing Stability Answer Date Recorded What is your housing situation today? I have murray quevedo 04/09/[address] you li ve. Do you have problems with any of the following? None of the above 04/09/2024 Food Insecurity Answer Date Recorded Within the past 12 months, y ou worried that your food would run out before you got money to buy more: Never True 04/09/2024 Within the past 12 months,th e food you bought just didn't last and you didn't have enough money to get more: Never True Transportation Answer Date Recorded In the past 12 months, has l ack of transportation kept you from medical appts, meetings, work or from getting things needed for daily living? Yes, it has kept me from medical appointments or getting medications.;Yes, it has kept me from non-medical meetings, work, or getting things that I need 05/21/2024 Utilities Answer Date Recorded In the past 12 months, has t he electric, gas, oil or water company threatened to shut off services in your home? Yes 05/21/2024 Depression Answer Date Recorded Patient Health Questionnaire-2 Score 1 05/21/2024 Internet Access Answer Date Recorded Internet Access Q1 Yes 04/09/2024 Internet Access Q2 Not on file 04/09/2024 Sex and Gender Information Value Date Recorded Sex Assigned at Male 05/13/2022 10:33 AM EDT Legal Sex Male 10:33 AM EDT Gender Identity Male 05/13/2022 10:33 AM EDT Sexual Orientation Straight 05/13/2022 10 :33 AM EDT documented as of this encounter Plan of Treatment Not on file documented as of this encounter Visit Diagnoses Diagnosis Type 2 diabetes mellitus with right eye affected by mild nonproliferative retinopathy without macular edema, with long-term current use of insulin ([facility]) documented in this encounter Additional Health Concerns Assessment Noted Time PHQ-9 Depression Total Score: 8 05/21/20 24 11:09 AM EST documented as of this encounter Care Teams Drum Dyeing Machine Operator Relationship Specialty Start Date End Date Nica Martínez FNP [address] [place] [id number] PCP - General Family Medicine 05/20/23 documented as of this encounter
--- OUTSIDE RECORDS SUMMARY | 2024-08-10 11:17 | XMS_ITS | Encounter Summary ---
Demographics Address [address] [place] [address] Mobile Phone Home Phone Email Address Preferred Language es Marital Status Scientology Affiliation Unknown Race White Ethnic Group or Author Organization [employer] Address [address] [place] [address] Care Team Providers Care Loss Control Engineer Name Role Phone Nica Martínez Primary Care Provider [phone] Reason for Visit * Reason Comments Med Refill Encounter Details Date Type Department Care Team ([facility] st Contact Info) Description 07/31/2024 Refill [facility] [address] [place], [place] [phone] Nica Martínez FNP [address] [place], [place] [phone] Type 2 diabetes mellitus without complication, with long-term current use of insulin ([facility]) Social History Tobacco Use Types Packs/Day Years [...] your housing situation today? I have murray sing 04/09/[address] you li [...] Visit Diagnoses Diagnosis Type 2 diabetes mellitus without complication, with long-term current use of insulin ([facility]) documented in this encounter Additional Health Concerns Assessment Noted Time PHQ-9 Depression Total Score: 8 05/21/20 24 11:09 AM EST documented as of this encounter Care Teams Loss Control Engineer Relationship Specialty Start Date End Date Nica Martínez FNP [address] [place] [address] PCP - General Family Medicine 05/20/23 documented as of this encounter
--- OUTSIDE RECORDS SUMMARY | 2024-08-10 11:17 | XMS_ITS | Clinical Summary ---
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 90 capsule Active FREESTYLE LITE test strip USE TO CHECK BLOOD SUGAR THREE TIMES DAILY Active glipiZIDE (Glucotrol) 10 MG tablet TAKE 1 TABLET BY MOUTH BEFORE BREAKFAST AND 1 TO 2 TABS BEFORE SUPER 270 tablet Active Viagra 50 MG tablet TAKE 1 TABLET 1 HOUR BEFORE SEXUAL RELATIONS ONCE DAILY NEEDED. 20 tablet 2 Active insulin pen needle 32G x 4 mm miscIndications:Ty pe 2 diabetes mellitus without complication, unspecified whether shelter insulin use (CMS/[facility]) Use as instructed 100 each 12 024 04/16 Active FREESTYLE LITE test stripIndications:T ype 2 diabetes mellitus without complication, unspecified whether terminal superintendent insulin use (CMS/[facility]) Use to test blood sugar 2 times daily 100 each 12 024 04/16 Active Lancets miscIndications:Ty pe 2 diabetes mellitus without complication, unspecified whether terminal superintendent insulin use (CMS/HCC) Use to test blood sugar 2 times daily 100 each 11 Active Alcohol Swabs 70 % padsIndications:Ty pe 2 diabetes mellitus without complication, unspecified whether shelter insulin use (CMS/HCC) Use to test blood sugar 2 times daily 100 each 11 Active Blood Glucose Monitoring Suppl (Aryaka NetworksStyle [place] Lite) w/Device kitIndications:Typ e 2 diabetes mellitus without complication, unspecified whether shelter insulin use (CMS/HCC) Use to test blood sugar 2 times daily 1 kit Active Additional Information Patient not taking.Reported on 06/01/2024 lidocaine (Lidoderm) 5 % patchIndications:M usadilson tension pain Apply 1 patch topically Once per day. Remove & discard patch within 12 hours or as directed by MD. 30 patch 2 Active cholecalciferol (Vitamin D-3) 25 MCG (1000 UT) tabletIndications: Vitamin D deficiency Take 1 tablet (25 mcg) by mouth Once per day. 90 tablet 3 024 Active insulin glargine (Lantus SoloStar) 100 UNIT/ML penIndications:Typ e 2 diabetes mellitus with right eye affected by mild nonproliferative retinopathy without macular edema, with long-term current use of insulin (CMS/[facility]) INJECT 45 UNITS SUBCUTANEOUSLY AT BEDTIME 15 mL 2 024 Active atorvastatin (Lipitor) 10 MG tabletIndications: Type 2 diabetes mellitus without complication, with long-term current use of insulin (CMS/[facility]) Take 1 tablet (10 mg) by mouth at bedtime. (Cholesterol) 90 tablet 3 024 Active lisinopril-hydroCH LOROthiazide 10-12.5 MG tabletIndications: Essential hypertension Take 1 tablet by mouth Once per day. (Blood Pressure) 90 tablet 1 024 Active doxycycline (Vibra-Tabs) 100 MG tablet Take 100 mg by mouth 2 times daily. 024 Active Mounjaro 2.5 MG/0.5ML solution auto-injectorIndic ations:Type 2 diabetes mellitus with right eye affected by mild nonproliferative retinopathy without macular edema, with long-term current use of insulin (CMS/[facility]) INJECT ONE PEN (=2.5MG) SUBCUTANEOUSLY ONCE A WEEK DIRECTED 2 mL 1 025 Active metFORMIN (Glucophage) 1000 MG tabletIndications: Type 2 diabetes mellitus without complication, with long-term current use of insulin (CMS/HCC) TAKE 1 TABLET(1000 MG) BY MOUTH EVERY 12 HOURS 180 tablet 3 025 Active Tirzepatide (Mounjaro) 2.5 MG/0.5ML solution auto-injectorIndic ations:Type 2 diabetes mellitus with right eye affected by mild nonproliferative retinopathy without macular edema, with long-term current use of insulin (CMS/HCC) Inject 2.5 mg under the skin 1 (one) time per week. 2 mL 1 024 07/26 Discontinued metFORMIN (Glucophage) 1000 MG tabletIndications: Type 2 diabetes mellitus without complication, with long-term current use of insulin (CMS/HCC) TAKE 1 TABLET(1000 MG) BY MOUTH EVERY 12 HOURS 180 tablet 3 024 08/03 Discontinued Active Problems Problem Noted Date Diagnosed Date Vitamin D insufficiency 05/23/2024 Overview (05/23/2024): Lab Results Component Value Date [id number] 16.5 (L) 04/26/2024 Started on Vit D 1000 units daily Apr 2024 Erectile dysfunction 05/23/2024 Assessment & Plan (05/23/2024 5:32 PM EST): Difficulty with maintaining erection, viagra has not been effective in past Discussed importance of good BG & BP control for vascular health Referral to Urology for further eval placed 05/23/24 Hepatitis B core antibody positive 05/23/2024 Overview (05/23/2024): Lab Results Component Value Date HEPBSURFACAG Negative 04/26/2024 HEPBSURFAB REACTIVE 04/26/2024 HEPBCOREAB Reactive 04/26/2024 Assessment & Plan (05/23/2024 5:48 PM EST): - Pt does not recall previous Hep B infection - [facility]aven consult placed 05/23/24 to confirm if any follow up is needed Pain in finger of left hand 04/18/2024 Assessment & Plan (05/23/2024 5:24 PM EST): Chronic, atraumatic, pain at base of third digit Worsens w/ repetitive motion/movement Right-hand dominant 04/26/24: XR left hand normal 05/23/24: referral to Ortho for further eval Assessment & Plan (04/18/2024 2:25 PM EDT): Chronic, atraumatic, pain at base of third digit Worsens w/ repetitive motion/movement Right-hand dominant TTP on exam, check XR to r/o bony abnormality/arthritic changes Symptomatic management Healthcare maintenance 04/18/2024 Overview (05/23/2024): PSA: normal Apr 2024 Colon CA screening: Due Physical Exam: Due Hyperlipidemia due to type 2 diabetes mellitus ( [facility]) 03/01/2022 Hyperlipidemia 06/18/2018 Chronic back pain 06/18/2018 Essential hypertension 05/28/2018 Overview (04/18/2024): Cont lisinopril-hydrochlorothiazide 10-12.5mg daily Cont low salt diet and routine physical activity Assessment & Plan (04/18/2024 2:43 PM EDT): Record home BP readings, bring to follow up appt Diabetes mellitus 08/26/2017 Overview (05/23/2024): Medications: Mounjaro 2.5mg subcutaneous weekly Metformin 1000mg BID Lantus 25 units at bedtime Glipizide 10mg BID Lab Results Component Value Date HGBA1C 9.5 (H) 04/26/2024 - A1c Above goal - Statin: atorvastatin - DARELL/ARB: lisinopril-hydrochlorothiazide -Encouraged lifestyle interventions Treatment Goals: A1c goal: <7% FBG goal: <130 2 hour post prandial goal: <180 Assessment & Plan (05/23/2024 5:52 PM EST): Previous medications: - Trulicity (DC d/t SE) - Ozempic (DC d/t copay) Goal: decrease lantus/glipizide d/t possible SE of hypoglycemia and weight gain. Replace with GLP1 and possibly SGLT2i once A1c < 9% Assessment & Plan (04/18/2024 2:29 PM EDT): Med Regimen: Glipizide 10mg BID Insulin lantus - 45 units at bedtime (although pt reports using up to 80 units) Start ozempic 0.25mg subcutaneous weekly. Reviewed med safety and SE Previous medications: - Trulicity (DC d/t SE) Goal: decrease lantus/glipizide d/t possible SE of hypoglycemia and weight gain. Replace with GLP1 and possibly SGLT2i once A1c < 9% Encounters Date Type Department Care Team Description 07/31/2024 Refill [facility] [address] [place] [address] Nica Martínez FNP Type 2 diabetes mellitus without complication, with long-term current use of insulin (CMS/HCC) 07/26/2024 Refill [facility] [address] [place] [address] Nica Martínez FNP Type 2 diabetes mellitus with right eye affected by mild nonproliferative retinopathy without macular edema, with long-term current use of insulin (CMS/HCC) 06/16/2024 Telephone [employer] [address] [place], [place] [phone] Nica Martínez FNP 06/01/2024 2:00 PM EST Office Visit [facility] [address] [place] [address] Lulu Bruno Dental abscess (Primary Dx); Dental calculus; Dental caries; Necrosis of dental pulp 05/21/2024 11:00 AM EST Telemedicine [facility] [address] [place] [address] Nica Martínez FNP Essential hypertension (Primary Dx); Pain in finger of left hand; Type 2 diabetes mellitus with right eye affected by mild nonproliferative retinopathy without macular edema, with long-term current use of insulin (CMS/HCC); Healthcare maintenance; Type 2 diabetes mellitus without complication, with long-term current use of insulin (CMS/HCC); Vitamin D insufficiency; Erectile dysfunction, unspecified erectile dysfunction type; Hepatitis B core antibody positive 05/21/2024 Patient Outreach [facility] [address] [place] [address] Nica Martínez FNP Care Coordination (CHW outreach for SDOH utilities and food needs-referral completed /) 05/21/2024 Travel 05/20/2024 Telephone [facility] [address] [place] [address] Erika Heard MA Chart Prep 05/14/2024 Patient Outreach [facility] [address] [place] [address] Nica Martínez FNP Pre-visit Planning (SDOH screening completed on 04/09/2024/) from Last 3 Months Immunizations Name Administration Dates Next Due Influenza Injectable Quadriv alant Preservative Free IIV4 MDCK 07/21/2021 Influenza injectable quadriv alent IIV4 with preservative 08/26/2017 Influenza injectable quadriv alent preservative free 04/23/2023,04/02/2022,05/13/2020 MMR 05/20/2023,04/16/2023 TD (adult), 2 Lf tetanus tox oid, preservative free, adsorbed 09/17/2017 Tdap 04/02/2022 Family History Medical History Relation Name Comments Diabetes Father Diabetes Mother Hypertension Mother Relation Name Status Comments Father Mother Social History Tobacco Use Types Packs/Day Years Used Date Smoking Tobacco: Never Smokeless Tobacco: Never Tobacco Cessation:Counseling Given: Not Answered Alcohol Use Standard Drinks/Week Comments Never 0 [...] the past 12 months, has t he [employer], [employer], oil or water [employer] threatened to shut off services in your [...] Orientation Straight 05/13/2022 10 :33 AM EDT Last Filed Vital Signs Vital Sign Reading Time Taken Comments Blood Pressure 128/84 06/01/2024 2:03 PM EST Pulse 60 06/01/2024 2:03 PM EST Temperature 36.7 ??C (98.1 ??F) 04/16/2024 9:36 AM ED T Respiratory Rate 22 04/16/2024 9:36 AM EDT Oxygen Saturation 98% 04/16/2024 9:36 AM EDT Inhaled Oxygen Concentration - - Weight 77.8 kg (171 lb 8 oz) 04/16/2024 9:36 AM EDT Height 165.1 cm (5' 5 ) 04/16/2024 9:36 AM EDT Body Mass Index 28.54 04/16/2024 9:36 AM EDT Plan of Treatment Health Maintenance Due Date Last Done Comments CT Colonography 1971 Colonoscopy 1971 Colorectal Cancer Screening 1971 FIT DNA/Cologuard 1971 FIT 1971 FOBT 1971 Sigmoidoscopy 1971 Pneumococcal Vaccine: Pediatrics (0 to 5 Years) and At-Risk Patients (6 to 64 Years) (1 of 2 - PCV) 1977 Diabetes: Foot Exam 1981 Zoster Vaccines (1 of 2) 2021 Eye Exam 01/17/2024 01/16/2023, 07/0 12/2022, 01/16/2023, Additional history exists COVID-19 Vaccine (3 - season) 2024 10/19/2020, 09/28/2020 Influenza Vaccine (#1) 2024 , 04/02/2022, 07/21/2021, Additional history exists Diabetes: Hemoglobin A1C 07/27/2024 024, 04/16/2024, 07/02/2022, Additional history exists Dental Oral Exam 11/30/2024 06/01/2024 Dental Prophylaxis 11/30/2024 06/01/2024 Diabetes: Urine Protein Screening 04/26/2025 04/26/2024, 09/11/2021 Lipid Panel 04/26/2025 04/26/2024 Alcohol/Substance Use Screening 05/21/2025 05/21/2024 Depression Screening 05/21/2025 05/21/2024, 05/21/20 24 SDOH Screening 05/21/2025 05/21/2024 Tobacco Screening 06/01/2025 06/01/2024 Dental X-Ray: Bitewings 06/02/2025 06/01/2024 Dental X-Ray: Full Mouth 06/02/2027 06/01/2024 DTaP/Tdap/Td Vaccines (2 - Td or Tdap) 04/02/2032 04/02/2022, 09/17/2017 RSV Patients and Patients Aged 60 years or older (1 - 1-dose 75+ series) 2046 HIV Screening Completed 04/26/2024 Hepatitis C Screening Completed 04/26/2024 HIB Vaccines Aged Out No longer eligi ble based on patient's age to complete this topic HPV Vaccines Aged Out No longer eligi ble based on patient's age to complete this topic Hepatitis A Vaccines Aged Out No long er eligible based on patient's age to complete this topic Hepatitis B Vaccines Discontinued IPV Vaccines Aged Out No longer eligi ble based on patient's age to complete this topic Meningococcal Vaccine Aged Out No darrin thomas eligible based on patient's age to complete this topic RSV under 20 months Aged Out No longe r eligible based on patient's age to complete this topic Rotavirus Vaccines Aged Out No longer eligible based on patient's age to complete this topic Procedures Procedure Name Priority Date/Time Associated Diagnosis Comments COMPREHENSIVE ORAL EVALUATION - NEW OR ESTABLISHED PATIENT Routine 06/01/2024 2:00 PM EST Dental abscess Dental caries Necrosis of dental pulp DIAGNOSTIC - DIAGNOSTIC IMAGING - INTRAORAL - COMPREHENSIVE SERIES OF RADIOGRAPHIC IMAGES Routine 06/01/2024 2:00 PM EST Dental abscess Dental caries Necrosis of dental pulp ORAL HYGIENE INSTRUCTIONS Routine 06/01/2024 2:00 PM EST Dental abscess Dental caries Necrosis of dental pulp ADJUNCTIVE GENERAL SERVICES - PROFESSIONAL VISITS - CASE PRESENTATION, SUBSEQUENT TO DETAILED AND EXTENSIVE TREATMENT PLANNING Routine 06/01/2024 2:00 PM EST Dental abscess Dental caries Necrosis of dental pulp PROPHYLAXIS - ADULT Routine 06/01/2024 2 :00 PM EST Dental abscess Dental caries Necrosis of dental pulp 30 EXTRACTION Routine 06/01/2024 12:00 AM EST 19 EXTRACTION Routine 06/01/2024 12:00 AM EST 3 EXTRACTION Routine 06/01/2024 12:00 AM EST 32 O AMALGAM FILLING Routine 06/01/2024 12:00 AM EST 18 O AMALGAM FILLING Routine 06/01/2024 12:00 AM EST 17 O AMALGAM FILLING Routine 06/01/2024 12:00 AM EST 15 O AMALGAM FILLING Routine 06/01/2024 12:00 AM EST 14 O AMALGAM FILLING Routine 06/01/2024 12:00 AM EST 1 O COMPOSITE FILLING Routine 06/01/2024 12:00 AM EST 2 O AMALGAM FILLING Routine 06/01/2024 1 2:00 AM EST HEPATITIS C VIRAL RNA, QUANTITATIVE, REAL-TIME PCR Routine 04/26/2024 7:18 AM EDT Healthcare maintenance HIV 1/2 ANTIGEN/ANTIBODY, FOURTH GENERATION W/RFL Routine 04/26/2024 7:18 AM EDT Healthcare maintenance HEMOGLOBIN A1C Routine 04/26/2024 7:18 AM EDT Type 2 diabetes mellitus without complication, unspecified whether terminal superintendent insulin use ([facility]) Healthcare maintenance LIPID PANEL, STANDARD Routine 04/26/2024 7:18 AM EDT Type 2 diabetes mellitus without complication, unspecified whether shelter insulin use (CMS/HCC) Healthcare maintenance ALBUMIN, RANDOM URINE W/CREATININE Routine 04/26/2024 7:10 AM EDT Type 2 diabetes mellitus without complication, unspecified whether terminal superintendent insulin use (CMS/HCC) Healthcare maintenance from Last 3 Months or Most Recently Relevant to Health Maintenance Results * Hepatitis C Viral RNA, Quantitative, Real-Time PCR (04/26/2024 7:18 AM EDT) Hepatitis C Viral Load <15 NOT DETECTED NOT DETECTED IU/mL [facility] HCV Log PCR <1.18 NOT DETECTED NOT DETECTED Log IU/mL [facility] Comment:For additional infor macrina, please refer tohttp://education.Biocartis/faq/PJX19t8(This link is being provided for informational/educational purposes only.)THIS TEST WAS PERFORMED AT:[facility] [place] [id number] GIL MD Blood 04/26/2024 7:18 AM EDT 04/26/2024 7:20 AM EDT Nica Martínez LOADER OPERATOR LAB BLOOD ORDERABLES Final Res ult [facility] [address] [place] [phone] * HIV-1/2 Antigen and Antibodies, Fourth Generation, with Reflexes (04/26/2024 7:18 AM EDT) HIV AB/AG Nonreactive Nonreactive [facility] Comment:HIV-1 p24 Ag and/or HIV-1/HIV-2 Ab not detected.A test result that is nonreactive does not exclude thepossibility of exposure to or infection with HIV-1 and/orHIV-2. Nonreactive results in this assay for individualswith prior exposure to HIV-1 and/or HIV-2 may be due toantigen and antibody levels that are below the limit ofdetection of this assay.The SiTimeniAdea HIV Ag/Ab Combo assay result andsupplemental assay results should be interpreted inconjunction with the patient's clinical presentation,history and other laboratory results. If the results areinconsistent with clinical evidence, additional testing issuggested to confirm the result. Blood Venous blood specimen / Unknown 04/26/2024 7:18 AM EDT 04/26/2024 7:20 AM EDT Nica Martínez [facility] BLOOD ORDERABLES Final Res ult Performing Organization Address [facility] Co de Phone Number [facility] [address] [place] [phone] * (ABNORMAL) Hemoglobin A1c (04/26/2024 7:18 AM EDT) Hemoglobin A1c 9.5(H) <6.0 % [facility] Comment:Hemoglobin A1C Refer ence Range Adults: 4.8 - 6.0 % Non diabetic: < 6.0 % Goal: < 7.0 %Additional Action Suggested: > 8.0 %Note: Hemoglobin A1c results are invalid for patients with abnormal amounts of HbF. Blood transfusions may impact the HbA1c concentration in the patient sample. Estimated Average Glucose 226 mg/dL [facility] Comment:eAG = Estimated ave rage glucose which is %A1C expressed asaverage glucose, using the formula of the G0J-DbigaymUmqufil Glucose study (ADAG), Diabetes Care, Vol.31,#8,Feb. 2007 Blood Venous blood specimen / Unknown 04/26/2024 7:18 AM EDT 04/26/2024 7:20 AM EDT Nica Martínez [facility] LAB BLOOD ORDERABLES Final Res ult Performing Organization Address [facility]/ZIP Co de Phone Number [facility] [address] [place] [phone] * (ABNORMAL) Lipid Panel, Standard (04/26/2024 7:18 AM EDT) Triglycerides 95 <150 mg/dL [facility] Comment:Desirable Triglyceri de: less than 150 mg/dLBorderline High Triglyceride 150-199 mg/dLHigh Triglyceride: 200-499 mg/dLVery High Triglyceride: greater than or equal to 5OO mg/dL Cholesterol 165 <200 mg/dL [facility] Comment:Desirable Cholestero l: less than 200 mg/dLBorderline High Cholesterol: 200-239 mg/dLHigh Cholesterol: greater than 239 mg/dL LDL Cholesterol Calculated 108(H) <100 mg/dL [facility] Comment:Desirable LDL: less than 100 mg/dLNear Optimal/Above Optimal LDL: 110- 129 mg/dLBorderline High LDL: 130-159 mg/dLHigh LDL: 160-189 mg/dLVery High LDL: greater than or equal to 190 mg/dL HDL Cholesterol 38(L) >40 mg/dL [facility] Comment:Desirable HDL: great er than 40 mg/dL Note: This HDL assay may give artificially low results in patients with liver disease. Blood Venous blood specimen / Unknown 04/26/2024 7:18 AM EDT 04/26/2024 7:20 AM EDT us Niac Martínez [facility] LAB BLOOD ORDERABLES Final Res ult [facility] [address] [place] [phone] * Albumin, Random Urine W/Creatinine (04/26/2024 7:10 AM EDT) Creatinine, Urine 205.94 mg/dL [facility] Microalbumin Urine 20.0 mg/L [facility] Microalbum Creatinine Ratio Ur 9.7 <30 ug/mg cr [facility] Comment:Albumin/Creatinine R atio Reference Ranges: Normal: < 30 ug/mg creatinine Microalbuminuria: 30 - 300 ug/mg creatinineClinical Albuminuria: > 300 ug/mg creatinine Urine 04/26/2024 7:10 AM EDT 04/26/2024 7:45 AM EDT Nica CARLIN LAB URINE ORDERABLES Final Res ult [facility] [address] [place] [phone] [phone] from Last 3 Months or Most Recently Relevant to Health Maintenance Insurance [employer] Care Teams [employer] Relationship Specialty Start Date End Date Nica Martínez FNP [address] [place] [address] PCP - General Family Medicine 05/20/23
== END 2024-08-10 10:23 | disposition home or self-care (01) ==
LOC: HO.HOSX 10:22
DX: Z13.89 Encounter for screening for other disorder (principal)

== ENCOUNTER 2024-10-20 13:03 | Outpatient (AMB) | payer OTHER, SELFPAY ==
--- NOTE | 2024-10-20 13:14 | A.OFFPC_ITS ---
Vital Signs 10/20/24 13:29 Height 5 ft 5.55 in Weight 172 lb 4 oz BMI 28.2 BP 110/80 Blood Pressure Location Rt brachial Position Sitting Respiration 12 Pulse 99 Pulse Source Pulse Oximeter Pulse Oximetry (%) 97 Oxygen Delivery Method Room Air Intake Visit Reasons: [facility] diabetes Intake Note: New patient visit. Has been out of [facility] for one month due to insurance. Loss Control Manager Required: Yes Loss Control Manager Language: Engine Emission Technician Name: Holly Allergies penicillin V Allergy (Unknown, Verified 10/20/24 13:20) Shortness of Breath Penicillins [PENICILLINS] Allergy (Unknown, Verified 10/20/24 13:20) SHORTNESS OF BREATH Medication List - Last Reconciled 10/20/24 by Bonita Caro PA-C blood sugar diagnostic (Accutrend Glucose test strips) As directed ciprofloxacin HCl daily glipizide mg PO insulin glargine (Lantus Solostar U-100 Insulin) 40 units subcut BID lancets (FreeStyle Lancets) As directed lisinopril 10 mg PO DAILY metformin 1,000 mg PO Q12H naproxen 500 mg PO BID PRN needle (disp) 26 gauge (BD Intradermal Bevel [place]) As directed semaglutide (Ozempic) . sildenafil (Viagra) 50 mg PO DAILY PRN Tobacco use date assessed: 10/20/24 Dental Screening Dental Screen Date: 10/20/24 Did you have a dental visit in the last 12 months?: Yes Did you have a dental problem in the last 6 months where you did not have access to dental care?: No Was dental information given to patient?: Patient has dentist HPI [facility] diabetes HPI Details Patient is a 54-year-old male with a significant past medical history of type 2 diabetes, ED, hypertension presenting today to [facility]. He is transferring from [facility]. CV: Blood pressure today in the office is 110/80. He is on lisinopril 10 mg. Cholesterol is diet controlled. Endo: Dm-he was diagnosed around 2009. He has an A1c today of 8.8. He is currently on metformin 1000 mg twice a day, Ozempic, glipizide, Lantus 40 units b.i.d. He has tried trulicity but this made him feel nauseous and tired. He does not have a CGM. He would be open to this. He states that he has never used it. He has a fam hx of diabetes. GI: He states for the last 10 years if he eats a large meal and lays down it easily comes back up. He has tried omeprazole for years with some improvement Uro: Struggles with erectile dysfunction. States that he can get an erection but has a hard time maintaining this. It is interfering with his relationship with his . He has trialed Viagra. He would like to see a urologist. Colonoscopy: Never had PSA: Up-to-date [facility] Medical History (Updated 10/21/24 @ 09:00 by Bonita Caro PA-C) HTN (hypertension) Diabetes Surgical History (Updated 10/20/24 @ 13:39 by Rowena Snell CMA) No pertinent past surgical history Family History (Updated 10/20/24 @ 13:42 by Rowena Snell CMA) Mother Asthma HTN (hypertension) High cholesterol Alcoholism FH: mental illness Father HTN (hypertension) High cholesterol Diabetes Maternal Grandmother HTN (hypertension) Paternal Grandfather HTN (hypertension) Maternal Uncle Substance abuse Social History Housing: House ([facility]) Alcohol intake: never Patient Tobacco Use Status: Never used Tobacco e-Cigarette/Vaping Use: Never Used Second Hand Smoke Exposure: No service: No 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 1. Little interest or pleasure in doing things: more than half the days 2. Feeling down, depressed, or hopeless: more than half the days 3. Trouble falling or staying asleep, or sleeping too much: more than half the days 4. Feeling tired or having little energy: more than half the days 5. Poor appetite or overeating: more than half the days 6. Feeling bad about yourself - or that you are a failure or have let yourself or your family down: several days 7. Trouble concentrating on things, such as reading the newspaper or watching television: more than half the days 8. Moving or speaking so slowly that other people could have noticed. Or the opposite - being so fidgety or restless that you have been moving around a lot more than usual: more than half the days 9. Thoughts that you would be better off or of hurting yourself in some way: not at all Total score: 15 Depression Screening Interpretation: Positive Depression Screening Follow-up: Existing condition and Follow-up Visit Requested Depression Screening Done: Yes 37278 - PHQ-9 Billing: Yes Source: Developed by Drs. Meir Cordova, Kim Cortez, Paulino Rogers and colleagues, with an educational osmany from [employer]. Thrive Questionnaire Date Thrive assessed: 10/20/24 I am a: Patient What is your living situation today?: I have a steady place to live Within the past 12 months, did the food you bought not last and you didn't have the money to get more?: Often true Within the past 12 months, did you worry whether your food would run out before you got money to buy more?: Often true Do you have trouble paying for medicines?: Yes Do you have trouble getting transportation to medical appointments?: Yes Do you have trouble paying your heating and electricity bill?: Yes Do you have trouble taking care of your child, family member or friend?: I choose not to answer this question Do you have trouble with day-to-day activities such as bathing, preparing meals, shopping, managing finances, etc.?: No Are you currently unemployed and looking for a job?: No Are you interested in more education?: No Please select the resources that you would like help with: Paying for medicine and Utilities Currently or been in a relationship where the following occur: I choose not to answer THRIVE Score: 4 AUDIT C Alcohol Use Questionnaire (AUDIT-C) 1. How often do you have a drink containing alcohol?: Never 3. How often do you have six or more drinks on one occasion?: Never Total Score: 0 SIDNEY-7 AMB Questionnaire SIDNEY-7 Date SIDNEY - 7 assessed: 10/20/24 Feeling nervous, anxious, or on edge: 1 = Several days Not being able to stop or control worryin = Nearly every day Worrying too much about different things: 3 = Nearly every day Trouble relaxin = Nearly every day Being so restless that it is hard to sit still: 2 = More than half the days Becoming easily annoyed or irritable: 2 = More than half the days Feeling afraid as if something awful might happen: 0 = Not at all Total SIDNEY-7 score (0-4 normal; 5-9 mild; 10-14 moderate; 15-21 severe): 14 Source: Developed by Drs. Meir Cordova, Kim Cortez, Paulino Rogers and colleagues, with an educational osmany from [employer]. SIDNEY-7 Assessment Billing SIDNEY-7 Assessment Tool: SIDNEY-7 Assessment 60192 Physical exam (Primary Care) Vital Signs: Last Vital Signs Pulse 99 10/20/24 13:29 Resp 12 10/20/24 13:29 BP 110/80 10/20/24 13:29 Pulse Ox 97 10/20/24 13:29 Oxygen Delivery Method Room Air 10/20/24 13:29 BMI result Body Mass Index 28.2 Tobacco/Smoking Status: Tobacco use Status Tobacco use date assessed 10/20/24 10/20/24 13:35 Patient Tobacco Use Status Never used Tobacco 10/20/24 13:16 e-Cigarette/Vaping Use Never Used 10/20/24 13:35 PHQ-9: PHQ-9 Score PHQ-9: Total score 15 10/20/24 13:45 Depression Screening Interpretation: Positive Depression Screening Follow-up: Existing condition and Follow-up Visit Requested Thrive Assessment: Date of Thrive Assessment Date Thrive assessed 10/20/24 10/20/24 13:35 Currently or been in a relationship where the following occur: I choose not to answer Const Orientation/consciousness: patient oriented x3 HENMT Ears: hearing grossly normal bilaterally Neck Thyroid: Thyroid normal Lymphatic: no lymphadenopathy noted Resp Auscultation: clear to auscultation bilaterally Cardio Rate: regular rate Rhythm: regular rhythm Heart sounds: S1 normal heart sound present and S2 normal heart sound present GI Inspection: Yes normal to inspection Palpation (GI): Soft to palpation and Other GI palpation findings present (nontender, no cva tenderness) Auscultation: normoactive bowel sounds Rectal Exam - Male: Yes deferred Skin General skin exam: no rashes or lesions noted Neuro General: patient oriented x3, gait normal and no focal motor deficits Coding Level of Care Code New Pt Level 4 (18368) Complex EM visit Add On G2211 Diagnoses GERD (gastroesophageal reflux disease) K21.9 Uncontrolled type 2 diabetes mellitus with hyperglycemia, with long-term current use of insulin E11.65; Z79.4 ED (erectile dysfunction) N52.9 Fatigue R53.83 Additional Codes SIDNEY-7 Assessment Billing - SIDNEY-7 Assessment Tool: SIDNEY-7 Assessment 41541 ([id number]) PHQ-9 - 54488 - PHQ-9 Billing: Yes ([id number]) Assessment & Plan Assessment & Plan (1) GERD (gastroesophageal reflux disease): Code(s): K21.9 - Gastro-esophageal reflux disease without esophagitis Category: Medical Plan: Referral to GI. Advised to continue with the omeprazole. (2) Uncontrolled type 2 diabetes mellitus with hyperglycemia, with long-term current use of insulin: Code(s): E11.65 - Type 2 diabetes mellitus with hyperglycemia; Z79.4 - intermediate project manager (current) use of insulin Category: Medical Plan: Free Style Wesley 3 ordered. If he has issues with using this he will let me know. I have refilled his current medications. Reviewed signs and symptoms of hyper and hypoglycemia that would require emergent medical treatment. Referral to endocrinology as he states he has never seen someone for this. Diabetic labs ordered. (3) ED (erectile dysfunction): Code(s): N52.9 - Male erectile dysfunction, unspecified Category: Medical Plan: I have referred him to Urology. Labs ordered. (4) Fatigue: Code(s): R53.83 - Other fatigue Category: Medical Plan: We reviewed the PHQ-9 and the depressive symptoms that he reported. He does not want treatment for this. He believes that this is partially related to his lifestyle. Orders: Orders TSH reflex Free T4 10/20/24 E11.65 - Type 2 diabetes mellitus with hyperglycemia, Z79.4 - intermediate project manager (current) use of insulin Islet Cell Antibody Scrn/Titer 10/20/24 E11.65 - Type 2 diabetes mellitus with hyperglycemia, Z79.4 - intermediate project manager (current) use of insulin Prostate Specific Antigen Scr 10/20/24 Z01.89 - Encounter for other specified special examinations Comprehensive [place]. Panel Fast 10/20/24 E11.65 - Type 2 diabetes mellitus with hyperglycemia, Z79.4 - alf (current) use of insulin Complete Blood Count Auto Diff 10/20/24 E11.65 - Type 2 diabetes mellitus with hyperglycemia, Z79.4 - intermediate project manager (current) use of insulin Lipid Panel 10/20/24 E11.65 - Type 2 diabetes mellitus with hyperglycemia, Z79.4 - intermediate project manager (current) use of insulin Microalbumin, Random (w Creat) 10/20/24 E11.65 - Type 2 diabetes mellitus with hyperglycemia, Z79.4 - alf (current) use of insulin C Peptide 10/20/24 E11.65 - Type 2 diabetes mellitus with hyperglycemia, Z79.4 - alf (current) use of insulin Glutamic acid decarboxylase Ab 10/20/24 E11.65 - Type 2 diabetes mellitus with hyperglycemia, Z79.4 - alf (current) use of insulin Referrals Gastroenterology Referral K21.9 - Gastro-esophageal reflux disease without esophagitis, Z12.11 - Encounter for screening for malignant neoplasm of colon Urology Referral N52.9 - Male erectile dysfunction, unspecified Endocrinology Referral E11.65 - Type 2 diabetes mellitus with hyperglycemia, Z79.4 - intermediate project manager (current) use of insulin Medications: New semaglutide (Ozempic) 0.5 mg (0.736 mL) subcut QWEEK 3 mL 2RF lisinopril 10 mg PO DAILY 90 tabs 3RF blood-glucose sensor (FreeStyle Wesley 3 Plus Sensor device) Use daily As directed to monitor glucose 2 ea 5RF E08.29 - Diabetes mellitus due to underlying condition with other diabetic kidney complication, R80.9 - Proteinuria, unspecified, Z79.4 - alf (current) use of insulin glipizide ER 10 mg PO DAILY 90 tabs 0RF insulin glargine (Lantus Solostar U-100 Insulin) 40 units (0.4 mL) subcut BID 15 mL 4RF glipizide ER 10 mg PO DAILY 90 tabs 0RF Discontinued albuterol sulfate 90 mcg/actuation Discontinued Reason: Patient Refused 2 puffs inhalation QID PRN 6.7 grams 0RF shortness of breath or wheezing
[2024-10-20 13:29] VITALS: BP 110/80; PULSE 99; RESP 12; O2SAT 97; BMI 28.2
--- OUTSIDE RECORDS SUMMARY | 2024-10-20 15:13 | XMS_ITS | Encounter Summary ---
Demographics Address [address] [place] [address] Mobile Phone Home Phone Email Address Preferred Language es Marital Status Uatsdin Affiliation Unknown Race White Ethnic Group or Author Organization [employer] Address [address] [place] [address] Care Team Providers Care Supervisor Pipe Finishing Name Role Phone Nica Martínez PRESS LOADER Primary Care Provider [phone] Encounter Details Date Type Department Care Team (Late st Contact Info) Description 10/19/2024 Telephone [facility] [address] [place], [place] [id number] Padmini Mayo, PharmD [address] [place] [address] Social History Tobacco Use Types Packs/Day Years [...] from getting things needed for daily living? No 10/15/2024 Utilities Answer Date Recorded In the past [...] AM EDT documented as of this encounter Miscellaneous Notes * Telephone Encounter - RAEGAN Ramon - 10/19/2024 4:20 PM EDT Noted! Will plan to discuss with pt during next appt and offer CDTM referral. * Telephone Encounter - Padmini Mayo PharmD - 10/19/2024 10:29 AM EDT Sujit, this patient had an A1c > 9% in April and has an upcoming appt with you this week. If diabetes is still uncontrolled please have a Supervising MD from [facility] send a referral for pharmacy CDTM program. Thank you! documented in this encounter Plan of Treatment Upcoming Encounters Date Type Department Care Team (Late st Contact Info) Description 10/22/2024 1:45 PM EDT Office Visit [facility] [address] [place] [address] Nica Martínez FNP [address] [facility] [place] [address] documented as of this encounter Visit Diagnoses Not on filedocumented in this encounter Additional Health Concerns Assessment Noted Time PHQ-9 Depression Total Score: 8 05/21/20 24 11:09 AM EST documented as of this encounter Care Teams Supervisor Pipe Finishing Relationship Specialty Start Date End Date Nica Martínez FNP [address] [place] [address] PCP - General Family Medicine 05/20/23 documented as of this encounter
--- OUTSIDE RECORDS SUMMARY | 2024-10-20 15:13 | XMS_ITS | Encounter Summary ---
Demographics Address [address] [place] [address] Mobile Phone Home Phone Email Address Preferred Language es Marital Status Yazdanism Affiliation Unknown Race White Ethnic Group or Author Organization [id number] Address [address] [place] [address] Care Team Providers Care Slurry Worker Name Role Phone Nica Martínez Primary Care Provider [phone] Reason for Visit * Reason Onset Date Comments Call Back Request 10/14/2024 Encounter Details Date Type Department Care Team ([facility] st Contact Info) Description 10/14/2024 Telephone [facility] [address] [place] [address] Nica Martínez FNP [address] [place] [address] Call Back Request Social History Tobacco Use Types Packs/Day Years [...] encounter Miscellaneous Notes * Telephone Encounter - Kayley Ramirez RN - 10/20/2024 11:36 AM EDT TC to pt with cold water machine operator services. Informed pt that medication assistance paperwork that pt has brought in was faxed to insurance and scanned into pt chart on 09/09/24. Author advised pt callinsurance company to see if it was approved or denied, and if it was denied to have insurance company send alternative medication recommendation. Pt verbalized understanding and agreement with plan. * Telephone Encounter - Melania Go - 10/14/2024 11:03 AM EDT Tc from pt requesting a call back regarding medications. Pt states last month brought a form to medical record that had to be signed by the PCP so insurance could cover the medications: - Lantus SoloStar 100 UNIT/ML pen - semaglutide (Ozempic) 2 MG/1.5ML solution pen-injector [phone] khmer documented in this encounter Plan of Treatment Upcoming Encounters Date Type Department Care Team (Late st Contact Info) Description 10/22/2024 1:45 PM EDT Office Visit [facility] [address] [place] [address] Nica Martínez FNP [address] [place] [address] documented as of this encounter Visit Diagnoses Not on filedocumented in this encounter Additional Health Concerns Assessment Noted Time PHQ-9 Depression Total Score: 8 05/21/20 24 11:09 AM EST documented as of this encounter Care Teams Slurry Worker Relationship Specialty Start Date End Date Nica Martínez FNP [address] [place] [address] PCP - General Family Medicine 05/20/23 documented as of this encounter
--- OUTSIDE RECORDS SUMMARY | 2024-10-20 15:13 | XMS_ITS | Clinical Summary ---
Demographics Address [address] [facility] [address] [place] [address] Mobile Phone Home Phone Email Address Preferred Language es Marital Status Worship Affiliation Unknown Race White Ethnic Group or Author Organization [employer] Address [address] [place] [address] Care Team Providers Care Bundle Breaker Name Role Phone Nica Martínez RAEGAN Primary Care Provider [phone] Allergies Active Allergy Reactions Criticality Noted Date Comments Penicillins 07/02/2022 Medications omeprazole (PriLOSEC) [address] capsuleIndications :Heartburn Take 1 capsule by mouth once a day 30 minutes before a meal. 90 capsule Active FREESTYLE LITE test strip USE TO CHECK BLOOD SUGAR THREE TIMES DAILY Active Viagra 50 MG tablet TAKE 1 TABLET 1 HOUR BEFORE SEXUAL RELATIONS ONCE DAILY NEEDED. 20 tablet 2 Active insulin pen needle 32G x 4 mm miscIndications:Ty pe 2 diabetes mellitus without complication, unspecified whether long goods drier insulin use ([facility]) Use as instructed 100 each 024 04/16 Active FREESTYLE LITE test stripIndications:T ype 2 diabetes mellitus without complication, unspecified whether retirement insulin use ([facility]) Use to test blood sugar 2 times daily 100 each 12 024 04/16 Active Lancets miscIndications:Ty pe 2 diabetes mellitus without complication, unspecified whether retirement insulin use ([facility]) Use to test blood sugar 2 times daily 100 each 11 Active Alcohol Swabs 70 % padsIndications:Ty pe 2 diabetes mellitus without complication, unspecified whether retirement insulin use ([facility]) Use to test blood sugar 2 times daily 100 each Active Blood Glucose Monitoring Suppl (FreeStyle Temple Lite) w/Device kitIndications:Typ e 2 diabetes mellitus without complication, unspecified whether retirement insulin use ([facility]) Use to test blood sugar 2 times daily 1 kit Active Additional Information Patient not taking.Reported on 06/01/2024 lidocaine (Lidoderm) 5 % patchIndications:M roberto carlos tension pain Apply 1 patch topically Once per day. Remove & discard patch within 12 hours or as directed by MD. 30 patch 2 Active cholecalciferol (Vitamin D-3) 25 MCG (1000 UT) tabletIndications: Vitamin D deficiency Take 1 tablet (25 mcg) by mouth Once per day. 90 tablet 3 024 Active atorvastatin (Lipitor) 10 MG tabletIndications: Type 2 diabetes mellitus without complication, with long-term current use of insulin ([facility]) Take 1 tablet (10 mg) by mouth at bedtime. (Cholesterol) 90 tablet 3 024 Active lisinopril-hydroCH LOROthiazide 10-12.5 MG tabletIndications: Essential hypertension Take 1 tablet by mouth Once per day. (Blood Pressure) 90 tablet 1 024 Active doxycycline (Vibra-Tabs) 100 MG tablet Take 100 mg by mouth 2 times daily. 024 Active metFORMIN (Glucophage) 1000 MG tabletIndications: Type 2 diabetes mellitus without complication, with long-term current use of insulin ([facility]) TAKE 1 TABLET(1000 MG) BY MOUTH EVERY 12 HOURS 180 tablet 3 Active glipiZIDE (Glucotrol) 10 MG tablet TAKE 1 TABLET BY MOUTH BEFORE BREAKFAST AND 1 TO 2 TABS BEFORE SUPPER 270 tablet 025 Active semaglutide (Ozempic) 2 MG/1.5ML solution pen-injectorIndica tions:Type 2 diabetes mellitus with right eye affected by mild nonproliferative retinopathy without macular edema, with long-term current use of insulin ([facility]) Inject 0.25 mg under the skin 1 (one) time per week. 3 mL 3 025 03/19 Active Lantus SoloStar 100 UNIT/ML penIndications:Typ e 2 diabetes mellitus with right eye affected by mild nonproliferative retinopathy without macular edema, with long-term current use of insulin (CMS/HCC) INJECT 45 UNITS SUBCUTANEOUSLY AT BEDTIME 15 mL 2 025 Active insulin glargine (Lantus SoloStar) 100 UNIT/ML penIndications:Typ e 2 diabetes mellitus with right eye affected by mild nonproliferative retinopathy without macular edema, with long-term current use of insulin (CMS/HCC) INJECT 45 UNITS SUBCUTANEOUSLY AT BEDTIME 15 mL 2 024 09/28 Discontinued Active Problems Problem Noted Date Diagnosed Date Vitamin D insufficiency 05/23/2024 Overview (05/23/2024): Lab Results Component Value Date [id number] 16.5 (L) 04/26/2024 Started on Vit D [...] due to type 2 diabetes mellitus ( [facility]) 03/01/2022 Hyperlipidemia 06/18/2018 Chronic back pain 06/18/2018 [...] Encounters Date Type Department Care Team Description 10/19/2024 Telephone [facility] [address] [place] [address] Padmini Mayo PharmD 10/15/2024 Patient Outreach [address] [address] Nica Martínez FNP Pre-visit Planning (SDOH screening negative and Tobacco screening negative) 10/14/2024 Telephone [facility] [address] [place] [address] Nica Martínez FNP Chart Prep 10/14/[address] [address] Nica Martínez FNP Call Back Request 09/28/2024 Refill [facility] [address] [place] [address] Nica Martínez FNP Type 2 diabetes mellitus with right eye affected by mild nonproliferative retinopathy without macular edema, with long-term current use of insulin ([facility]) 09/20/[address] [address] Nica Martínez FNP Medication Question 09/20/2024 Refill [facility] [address] [place] [address] Nica Martínez FNP Type 2 diabetes mellitus without complication, unspecified whether long goods drier insulin use ([facility]) 09/15/2024 Travel 09/13/2024 Telephone [facility] [address] [place] [address] Erika Heard [place] Chart Prep 09/03/[address] [address] Chuyita Amezquita, steel roller Question 09/01/2024 Telephone [facility] [address] [place] [address] Nica Martínez FNP August07/31/2024 Refill [facility] [address] [place] [address] Nica Martínez FNP Type 2 diabetes mellitus without complication, with long-term current use of insulin ([facility]) 07/26/2024 Refill [facility] [address] [place] [address] Nica Martínez FNP Type 2 diabetes mellitus with right eye affected by mild nonproliferative retinopathy without macular edema, with long-term current use of insulin ([facility]) from Last 3 Months Immunizations Name Administration [...] your housing situation today? I have murray sae 04/09/[address] you li [...] 04/16/2024 9:36 AM EDT Plan of Treatment Upcoming Encounters Date Type Department Care Team (Late st Contact Info) Description 10/22/2024 1:45 PM EDT Office Visit [facility] [address] [place] [address] Nica Martínez FNP [address] [place] [address] Health Maintenance Due Date Last Done Comments CT Colonography 1971 Colonoscopy 1971 Colorectal Cancer Screening 1971 FIT DNA/Cologuard 1971 FIT 1971 FOBT 1971 Sigmoidoscopy 1971 Diabetes: Foot Exam 1981 Pneumococcal Vaccine: 50+ Years (1 of 2 - PCV) 1990 Zoster Vaccines (1 of 2) 2021 Eye Exam 01/17/2024 01/16/2023, 07/0 12/2022, 01/16/2023, Additional history exists COVID-19 Vaccine ( season) 2024 10/19/2020, 09/28/2020 Influenza Vaccine (#1) 2024 , 04/02/2022, 07/21/2021, Additional history exists Diabetes: Hemoglobin A1C 07/27/2024 024, 04/16/2024, 07/02/2022, Additional history exists Dental Oral Exam 11/30/2024 06/01/2024 Dental Prophylaxis 11/30/2024 06/01/2024 Diabetes: Urine Protein Screening 04/26/2025 04/26/2024, 09/11/2021 Lipid Panel 04/26/2025 04/26/2024 Alcohol/Substance Use Screening 05/21/2025 05/21/2024 Depression Screening 05/21/2025 05/21/2024, 05/21/20 24 Tobacco Screening 06/01/2025 06/01/2024 Dental X-Ray: Bitewings 06/02/2025 06/01/2024 SDOH Screening 10/15/2025 10/15/2024 Dental X-Ray: Full Mouth 06/02/2027 06/01/2024 DTaP/Tdap/Td [...] Procedure Name Priority Date/Time Associated Diagnosis Comments PROPHYLAXIS - ADULT Routine 06/01/2024 2 :00 PM EST Dental abscess Dental caries Necrosis of dental pulp INTRAORAL - COMPLETE SERIES OF RADIOGRAPHIC IMAGES Routine 06/01/2024 2:00 PM EST Dental abscess Dental caries Necrosis of dental pulp COMPREHENSIVE ORAL EVALUATION - NEW OR ESTABLISHED PATIENT Routine 06/01/2024 2:00 PM EST Dental abscess Dental caries Necrosis of dental pulp HEPATITIS C VIRAL RNA, QUANTITATIVE, REAL-TIME PCR Routine 04/26/2024 7:18 AM EDT Healthcare maintenance HIV 1/2 ANTIGEN/ANTIBODY, FOURTH GENERATION W/RFL Routine 04/26/2024 7:18 AM EDT Healthcare maintenance HEMOGLOBIN A1C Routine 04/26/2024 7:18 AM EDT Type 2 diabetes mellitus without complication, unspecified whether retirement insulin use ([facility]) Healthcare maintenance LIPID PANEL, STANDARD Routine 04/26/2024 7:18 AM EDT Type 2 diabetes mellitus without complication, unspecified whether retirement insulin use ([facility]) Healthcare maintenance ALBUMIN, RANDOM URINE W/CREATININE Routine 04/26/2024 7:10 AM EDT Type 2 diabetes mellitus without complication, unspecified whether long goods drier insulin use ([facility]) Healthcare maintenance from Last 3 Months or Most Recently Relevant to Health Maintenance Results * Hepatitis C Viral RNA, Quantitative, Real-Time PCR (04/26/2024 7:18 AM EDT) Hepatitis C Viral Load <15 NOT DETECTED NOT DETECTED IU/mL [facility] HCV Log PCR <1.18 NOT DETECTED NOT DETECTED Log IU/mL [facility] Comment:For additional infor mation, please refer [email or web address].[email or web address]/faq/[email or web address](This link is being provided for informational/educational purposes only.)THIS TEST WAS PERFORMED AT:[facility] [place] [id number] GIL MD Blood 04/26/2024 7:18 AM EDT 04/26/2024 7:20 AM EDT us Nica Martínez [employer] LAB BLOOD ORDERABLES Final Res ult Performing Organization Address [facility]/ZIP Co de Phone Number [facility] [address] [place] [phone] * HIV-1/2 Antigen and Antibodies, Fourth Generation, with Reflexes (04/26/2024 7:18 AM EDT) HIV AB/AG Nonreactive Nonreactive [facility] Comment:HIV-1 p24 Ag and/or HIV-1/HIV-2 Ab not detected.A test result that is nonreactive does not exclude thepossibility of exposure to or infection with HIV-1 and/orHIV-2. Nonreactive results in this assay for individualswith prior exposure to HIV-1 and/or HIV-2 may be due toantigen and antibody levels that are below the limit ofdetection of this assay.The [employer] HIV Ag/Ab Combo assay result andsupplemental assay results should be interpreted inconjunction with the patient's clinical presentation,history and other laboratory results. If the results areinconsistent with clinical evidence, additional testing issuggested to confirm the result. Blood Venous blood specimen / Unknown 04/26/2024 7:18 AM EDT 04/26/2024 7:20 AM EDT us Nica Martínez [employer]REDDING MACHINE T[employer] LAB BLOOD ORDERABLES Final Res ult Performing Organization Address [facility]/ZIP Co de Phone Number [facility] [address] [place] [address] [phone] * (ABNORMAL) Hemoglobin A1c (04/26/2024 7:18 AM EDT) Hemoglobin A1c 9.5(H) <6.0 % [facility] Comment:Hemoglobin A1C Refer ence Range Adults: 4.8 - 6.0 % Non diabetic: < 6.0 % Goal: < 7.0 %Additional Action Suggested: > 8.0 %Note: Hemoglobin A1c results are invalid for patients with abnormal amounts of HbF. Blood transfusions may impact the HbA1c concentration in the patient sample. Estimated Average Glucose 226 mg/dL [facility] Comment:eAG = Estimated ave rage glucose which is %A1C expressed asaverage glucose, using the formula of the W1X-JsvhrpvOfakifd Glucose study (ADAG), Diabetes Care, Vol.31,#8,Feb. 2007 Blood Venous blood specimen / Unknown 04/26/2024 7:18 AM EDT 04/26/2024 7:20 AM EDT Nica Martínez [facility] BLOOD ORDERABLES Final Res ult [facility] [address] [place] [phone] * (ABNORMAL) Lipid Panel, Standard (04/26/2024 7:18 AM EDT) Triglycerides 95 <150 mg/dL [facility] Comment:Desirable Triglyceri de: less than 150 mg/dLBorderline High Triglyceride 150-199 mg/dLHigh Triglyceride: 200-499 mg/dLVery High Triglyceride: greater than or equal to 5OO mg/dL Cholesterol 165 <200 mg/dL [facility] Comment:Desirable Cholestero l: less than 200 mg/dLBorderline High Cholesterol: 200-239 mg/dLHigh Cholesterol: greater than 239 mg/dL LDL Cholesterol Calculated 108(H) <100 mg/dL [facility] Comment:Desirable LDL: less than 100 mg/dLNear Optimal/Above Optimal LDL: 110- 129 mg/dLBorderline High LDL: 130-159 mg/dLHigh LDL: 160-189 mg/dLVery High LDL: greater than or equal to 190 mg/dL HDL Cholesterol 38(L) >40 mg/dL [facility] Comment:Desirable HDL: great er than 40 mg/dL Note: This HDL assay may give artificially low results in patients with liver disease. Blood Venous blood specimen / Unknown 04/26/2024 7:18 AM EDT 04/26/2024 7:20 AM EDT Nica Martínez SHREDDING MACHINE T[employer] LAB BLOOD ORDERABLES Final Res ult Performing Organization Address [facility] Co de Phone Number [facility] [address] [place] [address] [phone] * Albumin, Random Urine W/Creatinine (04/26/2024 7:10 AM EDT) Creatinine, Urine 205.94 mg/dL [facility] Microalbumin Urine 20.0 mg/L [facility] Microalbum Creatinine Ratio Ur 9.7 <30 ug/mg cr [facility] Comment:Albumin/Creatinine R atio Reference Ranges: Normal: < 30 ug/mg creatinine Microalbuminuria: 30 - 300 ug/mg creatinineClinical Albuminuria: > 300 ug/mg creatinine Urine 04/26/2024 7:10 AM EDT 04/26/2024 7:45 AM EDT Nica Martínez [employer]ACH[employer] T[employer] LAB URINE ORDERABLES Final Res ult Performing Organization Address [facility] Co de Phone Number [facility] [address] [place] [address] [phone] from Last 3 Months or Most Recently Relevant to Health Maintenance Insurance * Guarantor: Jie Mason Account Type Relation to Patient Date of Phone Billing Address Personal/Family Self [address] [place] [address] [facility] * Guarantor: Jie Mason Account Type Relation to Patient Date of Phone Billing Address Dental Self 1970 [address] [facility] [address] [place] [address] * Guarantor: Jie Mason Account Type Relation to Patient Date of Phone Billing Address Personal/Family Self [address] [facility] [address] [place] [address] * Guarantor: Jie Masno Account Type Relation to Patient Date of Phone Billing Address Personal/Family Self [address] [facility] [address] [place] [address] * Guarantor: Jie Mason Account Type Relation to Patient Date of Phone Billing Address Personal/Family Self [address] [facility] [address] [place] [address] Care Teams Bundle Breaker Relationship Specialty Start Date End Date Nica Martínez FNP [address] [place] [address] PCP - General Family Medicine 05/20/23
--- OUTSIDE RECORDS SUMMARY | 2024-10-20 15:13 | XMS_ITS | Encounter Summary ---
Demographics Address [address] [facility] [address] [place] [address] Mobile Phone Home Phone Email Address Preferred Language es Marital Status Jehovah'S Witness Affiliation Unknown Race White Ethnic Group or Author Organization [employer] Address [address] [place] [address] Care Team Providers Care Master Brewer Name Role Phone Nica Martínez Primary Care Provider Reason for Visit * Reason Comments Pre-visit Planning SDOH screening negat xochitl and Tobacco screening negative Encounter Details Date Type Department Care Team ([facility] st Contact Info) Description 10/15/2024 Patient Outreach [facility] [address] [place] [address] Nica Martínez FNP [address] [place] [address] Pre-visit Planning (SDOH screening negative and Tobacco screening negative) Social History Tobacco Use Types Packs/Day Years [...] AM EDT documented as of this encounter Progress Notes * Mauro Dixon - 10/15/2024 10:50 AM EDT CC Mauro Esparza placed successful outbound call to patient for pre-visit planning. Patient name and confirmed. Patient confirms appt date and time, and has transportation arrangements. Biggest concern for appointment at this time is patient stated insurance will not cover for medication Lantus insulin and would like to discuss further steps. Patient advised to bring to appointment a photo id andinsurance card. Appropriate screenings completed in anticipation of appointment. documented in this encounter Plan of Treatment Upcoming Encounters Date Type Department Care Team (Late st Contact Info) Description 10/22/2024 1:45 PM EDT Office Visit [facility] [address] [place] [address] Nica Martínez FNP [address] [place] [address] documented as of this encounter Visit Diagnoses Not on filedocumented in this encounter Additional Health Concerns Assessment Noted Time PHQ-9 Depression Total Score: 8 05/21/20 24 11:09 AM EST documented as of this encounter Care Teams Master Brewer Relationship Specialty Start Date End Date Nica Martínez FNP [address] [place] [address] PCP - General Family Medicine 05/20/23 documented as of this encounter
--- OUTSIDE RECORDS SUMMARY | 2024-10-20 15:13 | XMS_ITS | Encounter Summary ---
Demographics Address [address] [place] [address] [address] [place] [address] Mobile Phone Home Phone Email Address Preferred Language es Marital Status Anabaptist Affiliation Unknown Race White Ethnic Group or Author Organization [employer] Address [address] [place] [address] Care Team Providers Care Pole Shaver Name Role Phone Nica Martínez Primary Care Provider [phone] Reason for Visit * Reason Comments Med Refill Encounter Details Date Type Department Care Team ([facility] Contact Info) Description 09/20/2024 Refill [facility]S [address] [place], [place] [phone] Nica Martínez FNP [address] [place], [place] [phone] Type 2 diabetes mellitus without complication, unspecified whether director long term care insulin use ([facility]) Social History Tobacco Use Types Packs/Day Years [...] as of this encounter Plan of Treatment Upcoming Encounters Date Type Department Care Team (Late st Contact Info) Description 10/22/2024 1:45 PM EDT Office Visit [facility] [address] [place] [address] Nica Martínez FNP [address] [place] [address] documented as of this encounter Visit Diagnoses Diagnosis Type 2 diabetes mellitus without complication, unspecified whether director long term care insulin use ([facility]) documented in this encounter Additional Health Concerns Assessment Noted Time PHQ-9 Depression Total Score: 8 05/21/20 24 11:09 AM EST documented as of this encounter Care Teams Pole Shaver Relationship Specialty Start Date End Date Nica Martínez FNP [address] [place] [address] PCP - General Family Medicine 05/20/23 documented as of this encounter
--- OUTSIDE RECORDS SUMMARY | 2024-10-20 15:13 | XMS_ITS | Encounter Summary ---
Demographics Address [address] [place] [address] [address] [place] [address] Mobile Phone Home Phone Email Address Preferred Language es Marital Status Nondenominational Affiliation Unknown Race White Ethnic Group or Author Organization [employer] Address [address] [place] [address] Care Team Providers Care Physician Support Coordinator Name Role Phone Geetha Matos MD Primary Care Pro vider Nica Martínez Primary Care Provider [phone] Reason for Visit * Reason Comments Med Refill Encounter Details Date Type Department Care Team (Late st Contact Info) Description 04/09/2023 Refill [facility] MED[facility] [address] [place], [place] [phone] Nica Martínez FNP [address] [place], [place] [phone] Social History Tobacco Use Types Packs/Day Years [...] Encounters Date Type Department Care Team (Late Contact Info) Description 10/22/2024 1:45 PM EDT Office Visit [facility]S [address] [place], [place] [phone] Nica Martínez FNP [address] [place], [place] [phone] documented as of this encounter Visit Diagnoses Not on filedocumented in this encounter Care Teams Physician Support Coordinator Relationship Specialty Start Date End Date Geetha Matos MD [address] [place] [address] PCP - General Internal Medicine 01/29/23 05/19/23 Nica Martínez FNP [address] [place] [phone] PCP - General Family Medicine 05/20/23 documented as of this encounter
== END 2024-10-20 14:21 | disposition home or self-care (01) ==
LOC: HO.HMCFM 13:07
PROVIDERS: PCP Physician Assistant; Visit Provider Physician Assistant
DX: K21.9 Gastro-esophageal reflux disease without esophagitis (principal); E11.65 Type 2 diabetes mellitus with hyperglycemia; Z79.4 Long term (current) use of insulin; N52.9 Male erectile dysfunction, unspecified; R53.83 Other fatigue

== ENCOUNTER → 2024-10-20 13:03 | Outpatient (BNVA) | payer OTHER, SELFPAY | PROVIDERS: PCP Physician Assistant; Visit Provider Physician Assistant | DX: K21.9 Gastro-esophageal reflux disease without esophagitis (principal); E11.65 Type 2 diabetes mellitus with hyperglycemia; N52.9 Male erectile dysfunction, unspecified; R53.83 Other fatigue; Z79.4 Long term (current) use of insulin | CPT/HCPCS: 96127 ==

== ENCOUNTER 2024-11-04 17:35 | Emergency (ER) | payer OTHER, SELFPAY ==
[2024-11-04 17:49] VITALS: BP 141/87; PULSE 84; RESP 16; TEMP 36.3; O2SAT 95; BMI 28.1
--- NOTE | 2024-11-04 17:53 | ED.EYEPROB ---
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 does not remember any foreign body injury woke up with purulent discharge from the left eye no other family member sick no history of STI Related Data Home Medications ?Medication ?Instructions ?Recorded ?Confirmed metformin 1,000 mg tablet 1,000 mg PO Q12H 10/20/24 10/20/24 sildenafil 50 mg tablet (Viagra) 50 mg PO DAILY PRN 10/20/24 10/20/24 Previous Rx's ?Medication ?Instructions ?Recorded blood sugar diagnostic (Accutrend #50 ea 04/08/21 Glucose test strips) lancets 28 gauge (FreeStyle #100 ea 04/08/21 Lancets) needle (disp) 26 gauge 26 gauge x #100 ea 04/08/21 3/8 (BD Intradermal Bevel Mosca) naproxen 500 mg tablet 500 mg PO BID PRN pain #30 tabs 03/19/23 blood-glucose sensor (FreeStyle #2 ea 10/20/24 Wesley 3 Plus Sensor device) glipizide 10 mg tablet, extended 10 mg PO DAILY #90 tabs 10/20/24 release 24 hr insulin glargine 100 unit/mL (3 40 unit (0.4 mL) subcut BID #15 mL 10/20/24 mL) subcutaneous pen (Lantus Solostar U-100 Insulin) lisinopril 10 mg tablet 10 mg PO DAILY #90 tabs 10/20/24 semaglutide 0.25 mg or 0.5 mg (2 0.5 mg (0.736 mL) subcut QWEEK #3 10/20/24 mg/3 mL) subcutaneous pen injector mL (Ozempic) tobramycin 0.3 % eye drops 2 drp ophthalmic (eye) Q4H #5 mL 11/04/24 Allergies Allergy/AdvReac Type Severity Reaction Status Date / Time penicillin V Allergy Unknown Shortness Verified 11/04/24 17:52 of Breath Penicillins [PENICILLINS] Allergy Unknown SHORTNESS Verified 11/04/24 17:52 OF BREATH Review of Systems Review of Systems: Yes all other systems are reviewed and are negative [facility] Past Medical History Medical History HTN (hypertension) Diabetes Surgical History No pertinent past surgical history Family History Family History Mother Asthma HTN (hypertension) High cholesterol Alcoholism FH: mental illness Father HTN (hypertension) High cholesterol Diabetes Maternal Grandmother HTN (hypertension) Paternal Grandfather HTN (hypertension) Maternal Uncle Substance abuse Social History Social History Housing: House ([facility] Alcohol intake: never Patient Tobacco Use Status: Never used Tobacco e-Cigarette/Vaping Use: Never Used Second Hand Smoke Exposure: No Advance Directives: No Advance Directives Information Provided: No service: No 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 Oriented X3. No acute distress. Eyes: Left eye injected with purulent copious discharge anterior chamber normal cornea normal no foreign body seen ENT: Pharynx normal. Oral Mucosa moist Neck: Normal inspection. Neck supple. CVS: Normal heart rate and rhythm. Pulses normal. Respiratory: No respiratory distress. Equal air entry bilateral, no wheezing/rales/rhonchi Abdomen: Soft and nontender. Bowel sounds are present, no mass palpable, no CVA tenderness Skin: Skin warm and dry. Normal skin color. Normal skin turgor. Extremities: No lower extremity edema. No calf tenderness Neuro: Oriented X 3. Course Course Course Narrative: This is a Rapid Medical Exam performed in triage by Michelle Graham PA-C. Full HPI, ROS and PE to be performed by primary ED provider. 54 yo M w/PMHx HTN, DM presenting to the ED c/o L eye irritation/erythema, blurry vision, & drainage since waking this AM. 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 Tried to flush without improvement. Wears glasses, not contacts. PE: Left eye with diffuse conjunctival injection, chemosis, EOMs intact without entrapment. Plan: VA, fluorescein staining, IOP Medications Administered Discontinued Medications Generic Name Dose Route Start Last Admin Trade Name Freq PRN Reason Stop Dose Admin Fluorescein Sodium 1 strip 11/04/24 17:55 11/04/24 21:11 Fluorescein Sodium Strip EYE-LEFT 11/04/24 17:56 1 strip ONCE ONE Administration Tetracaine HCl 1 drop 11/04/24 17:55 11/04/24 21:11 Tetracaine Hcl/Pf 0.5% Oph Alondra 4 Ml Drops EYE-LEFT 11/04/24 17:56 1 drop ONCE ONE Administration Tobramycin Sulfate 2 drop 11/04/24 21:20 11/04/24 21:33 Tobramycin Sulfate 0.3% Alondra Op 5 Ml Btl EYE-BOTH 11/04/24 21:21 2 drop ONCE ONE Administration Medical Decision Making Medical Decision Making MDM Narrative: Patient clinically with purulent conjunctivitis will prescribe tobramycin eye drops Discharge Plan Discharge Clinical Impression: Bacterial conjunctivitis Patient Disposition: Home, Self-Care Instructions: Conjunctivitis (ED) Additional Instructions: Use Antibiotic eye drops as prescribed Report to the ER/PCP if not better Prescriptions: New tobramycin 0.3 % drops 2 drp ophthalmic (eye) Q4H Qty: 5 0RF No Action (DME) lancets [FreeStyle Lancets] 28 gauge misc See Rx Instructions .Route Qty: 100 0RF Rx Instructions: As directed (DME) Accutrend Glucose test strips Strip See Rx Instructions .Route Qty: 50 0RF Rx Instructions: As directed (DME) BD Intradermal Bevel Mosca 26 gauge x 3/8 needle See Rx Instructions .Route Qty: 100 0RF Rx Instructions: As directed naproxen 500 mg tablet 500 mg PO BID PRN (Reason: pain) Qty: 30 0RF metformin 1,000 mg tablet 1,000 mg PO Q12H sildenafil [Viagra] 50 mg tablet 50 mg PO DAILY PRN (DME) FreeStyle Wesley 3 Plus Sensor Device See Rx Instructions .ROUTE .MEDSUPPLY Qty: 2 5RF Rx Instructions: Use daily As directed to monitor glucose Ozempic 0.25 mg or 0.5 mg (2 mg/3 mL) pen injector 0.5 mg subcut QWEEK Qty: 3 2RF insulin glargine [Lantus Solostar U-100 Insulin] 100 unit/mL (3 mL) insulin pen 40 unit subcut BID Qty: 15 4RF lisinopril 10 mg tablet 10 mg PO DAILY Qty: 90 3RF glipizide 10 mg tablet extended release 24hr 10 mg PO DAILY Qty: 90 0RF Interventions: ED Discharge Assessment Last Done: 11/04/24 21:40 Discharge Date/Time: 11/04/24 21:43 Print Language: Yi
[2024-11-04] MEDS: Fluorescein Sodium STRIP 1 STRIP EYE-LEFT (21:11)
[2024-11-04] MEDS: Tetracaine HCl/PF 0.5% Oph Sol 4 ML DROPS 1 DROP EYE-LEFT (21:11)
[2024-11-04] MEDS: Tobramycin Sulfate 0.3% Sol Op 5 ML BTL 2 DROP EYE-BOTH (21:33)
[2024-11-04 21:34] VITALS: BP 149/95; PULSE 76; RESP 16; TEMP 36.6; O2SAT 96
[2024-11-04 21:40] VITALS: BP 149/95; PULSE 76; RESP 16; TEMP 36.6; O2SAT 96
== END 2024-11-04 21:43 | disposition home or self-care (01) ==
PROVIDERS: Emergency Provider Internal Medicine
DX: H10.89 Other conjunctivitis (principal); E11.9 Type 2 diabetes mellitus without complications; I10 Essential (primary) hypertension
CPT/HCPCS: 99282; 99283

== ENCOUNTER 2024-11-17 13:05 | Outpatient (AMB) | payer OTHER, SELFPAY ==
[2024-11-17 13:07] VITALS: BP 154/90; PULSE 80; O2SAT 96; BMI 28.4
--- NOTE | 2024-11-17 13:07 | A.OFFVIS_ITS ---
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 He is prescribed glipizide 10mg ER and ozempic 0.5mg weekly but has been unable to get these medications ?insurance issue. He also had to pay for his last rx for lantus due to a coverage issue. He is not monitoring glucose levels. He says he does not have a traditional glucometer. He was ordered for freestyle CGM but it appears that insurance has denied this. His glucose in the office today was 71. Just came from work. Came up quickly with dion laurita He has tried trulicity but this made him feel nauseous and tired. He has a fam hx of diabetes. Complications: erectile dysfunction. He has been referred to urology. Endorses neuropathy b/l LE-lower legs feets. No falls, no open skin ROS see HPI PHYSICAL EXAM: GENERAL: Alert and oriented x 3. NAD EYES: EOMI. Anicteric. HENT: Moist mucous membranes. No scleral icterus. No cervical lymphadenopathy. LUNGS: Clear to auscultation bilaterally. CARDIOVASCULAR: Regular rate and rhythm. No murmur. No JVD. ABDOMEN: Soft, non-tender +bs EXTREMITIES: No edema. Non-tender. SKIN: No rashes or lesions. Warm. NEUROLOGIC: No focal neurological deficits. CN II-XII grossly intact PSYCHIATRIC: Cooperative. Appropriate mood and affect [facility] Medical History HTN (hypertension) Diabetes Surgical History No pertinent past surgical history Family History Mother Asthma HTN (hypertension) High cholesterol Alcoholism FH: mental illness Father HTN (hypertension) High cholesterol Diabetes Maternal Grandmother HTN (hypertension) Paternal Grandfather HTN (hypertension) Maternal Uncle Substance abuse Social History Housing: House ([facility]) Alcohol intake: never Patient Tobacco Use Status: Never used Tobacco e-Cigarette/Vaping Use: Never Used Second Hand Smoke Exposure: No service: No 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 (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, sharp objects) Cognitive needs: No Hearing needs: No Vision needs: Yes (glasses) Physical Exam Vital Signs: Last Vital Signs Pulse 80 11/17/24 13:07 BP 154/90 H 11/17/24 13:07 Pulse Ox 96 11/17/24 13:07 Oxygen Delivery Method Room Air 11/17/24 13:07 BMI result Body Mass Index 28.4 Results AMB Hemoglobin A1c AMB Hemoglobin A1c 8.6 % Last Edit by RYLEY Leroy on 11/17/24 13:28 Results Reviewed Results Reviewed: Laboratory Last Values Glucose (Clinic) 71 mg/dL (60-115) 11/17/24 13:13 Hgb A1c (Clinic) 8.6 % (4.0-6.0) H 11/17/24 13:27 Assessment & Plan Assessment & Plan (1) Uncontrolled type 2 diabetes mellitus with hyperglycemia, with long-term current use of insulin: Code(s): E11.65 - Type 2 diabetes mellitus with hyperglycemia; Z79.4 - medical terminologist (current) use of insulin Category: Medical (2) ED (erectile dysfunction): Code(s): N52.9 - Male erectile dysfunction, unspecified Category: Medical Qualifiers: Erectile dysfunction type: unspecified Qualified Code(s): N52.9 - Male erectile dysfunction, unspecified (3) Neuropathic pain: Code(s): M79.2 - Neuralgia and neuritis, unspecified Category: Medical Plan Uncontrolled diabetes. Patient is having insurance issues. Have resent all medications to so we can try to sort out what PAs need to be made or potential substitutions. Given his BG is low today I have advised him that if does restart glipizide and ozempic that he needs to decrease his insulin to 30mg twice daily and perhaps even further. Stressed the importance of monitoring BG levels at home. Both CGM and traditional glucometer sent. He would benefit greatly from diabetic education -referral has been placed. He will follow up in 2 weeks to review what has transpired with medication approval and review glucose levels. Orders: Orders AMB Hemoglobin A1c Today E11.65 - Type 2 diabetes mellitus with hyperglycemia, Z79.4 - medical terminologist (current) use of insulin Referrals Diabetes Education Referral E11.65 - Type 2 diabetes mellitus with hyperglycemia, Z79.4 - medical terminologist (current) use of insulin Medications: New Dexcom G7 Sensor (blood-glucose sensor) every 10 days 9 ea 3RF NS E11.65 - Type 2 diabetes mellitus with hyperglycemia, Z79.4 - medical terminologist (current) use of insulin Dexcom G7 [place] (blood-glucose,behavioral intervention specialist,cont) As directed 1 ea 0RF NS E11.65 - Type 2 diabetes mellitus with hyperglycemia, Z79.4 - long-term (current) use of insulin metformin 1,000 mg PO Q12H 180 tabs 3RF Refilled semaglutide (Ozempic) 0.5 mg (0.736 mL) subcut QWEEK 3 mL 2RF insulin glargine (Lantus Solostar U-100 Insulin) 40 units (0.4 mL) subcut BID 45 mL 3RF glipizide ER 10 mg PO DAILY 90 tabs 3RF Coding Level of Care Code New Pt Level 4 (89779) Diagnoses Uncontrolled type 2 diabetes mellitus with hyperglycemia, with long-term current use of insulin E11.65; Z79.4 Erectile dysfunction, unspecified erectile dysfunction type N52.9 Erectile dysfunction type: unspecified Neuropathic pain M79.2
[2024-11-17 13:18] LABS: Glucose, Whole Blood 71 mg/dL (60-115)
[2024-11-17 13:37] LABS: Glucose, Whole Blood 138 mg/dL (60-115)
--- OUTSIDE RECORDS SUMMARY | 2024-11-17 14:18 | XMS_ITS | Encounter Summary ---
Demographics Address [address] [place] [address] [address] [place] [address] Mobile Phone Home Phone Email Address Preferred Language es Marital Status Anabaptism Affiliation Unknown Race White Ethnic Group Unknown Author Organization [employer] Address [address] [place] [address] Care Team Providers Care Distance Learning Coordinator Name Role Phone Geetha Matos MD Primary Care Pro vider Nica Martínez Primary Care Provider [phone] Reason for Visit * Reason Comments Med Refill Encounter Details Date Type Department Care Team ([facility] st Contact Info) Description 04/09/2023 Refill [facility] [address] [place] [address] iNca Martínez FNP [address] [place], [place] [id number] Social History Tobacco Use Types Packs/Day Years [...] on filedocumented in this encounter Care Teams Distance Learning Coordinator Relationship Specialty Start Date End Date Geetha Matos MD [address] [place] [address] PCP - General Internal Medicine 01/29/23 05/19/23 Nica Martínez FNP [address] [place] [address] PCP - General Family Medicine 05/20/23 documented as of this encounter
--- OUTSIDE RECORDS SUMMARY | 2024-11-17 14:18 | XMS_ITS | Clinical Summary ---
Demographics Address [address] [place] [address] [address] [place] [address] Mobile Phone Home Phone Email Address Preferred Language es Marital Status Shinto Affiliation Unknown Race White Ethnic Group Unknown Author Organization [employer] Address [address] [place] [address] Care Team Providers Care Gardener Florist Name Role Phone Nica Martínez RAEGAN Primary Care Provider [phone] Allergies Active Allergy Reactions Criticality Noted Date Comments Penicillins 07/02/2022 Medications omeprazole (PriLOSEC) [address] capsuleIndications: Heartburn Take 1 capsule by mouth once a day 30 minutes before a meal. 90 capsule 07/02/20 22 Active FREESTYLE LITE test strip USE TO CHECK BLOOD SUGAR THREE TIMES DAILY 05/31/20 22 Active Viagra 50 MG tablet TAKE 1 TABLET 1 HOUR BEFORE SEXUAL RELATIONS ONCE DAILY NEEDED. 20 tablet 2 03/22/20 24 Active insulin pen needle 32G x 4 mm miscIndications:Typ e 2 diabetes mellitus without complication, unspecified whether long chain beamer insulin use (CMS/[facility]ERLY [facility]) Use as instructed 100 each 04/16/20 24 2024 Active FREESTYLE LITE test stripIndications:Ty pe 2 diabetes mellitus without complication, unspecified whether long chain beamer insulin use (CMS/HCC) Use to test blood sugar 2 times daily 100 each 12 04/16/20 24 2024 Active Lancets miscIndications:Typ e 2 diabetes mellitus without complication, unspecified whether detention insulin use (CMS/HCC) Use to test blood sugar 2 times daily 100 each 04/16/20 24 Active Alcohol Swabs 70 % padsIndications:Typ e 2 diabetes mellitus without complication, unspecified whether detention insulin use (CMS/HCC) Use to test blood sugar 2 times daily 100 each 04/16/20 24 Active Blood Glucose Monitoring Suppl (FreeStyle [place] Lite) w/Device kitIndications:Type 2 diabetes mellitus without complication, unspecified whether long chain beamer insulin use (CMS/[facility]ER[facility]) Use to test blood sugar 2 times daily 1 kit 04/16/20 24 Active Additional Information Patient not taking.Reported on 06/01/2024 lidocaine (Lidoderm) 5 % patchIndications:Mu scle tension pain Apply 1 patch topically Once per day. Remove & discard patch within 12 hours or as directed by MD. 30 patch 2 04/16/20 24 Active cholecalciferol (Vitamin D-3) 25 MCG (1000 UT) tabletIndications:V itamin D deficiency Take 1 tablet (25 mcg) by mouth Once per day. 90 tablet 3 05/06/20 24 Active atorvastatin (Lipitor) 10 MG tabletIndications:T ype 2 diabetes mellitus without complication, with long-term current use of insulin (CMS/HCC) Take 1 tablet (10 mg) by mouth at bedtime. (Cholesterol) 90 tablet 3 05/21/20 24 Active lisinopril-hydroCHL OROthiazide 10-12.5 MG tabletIndications:E ssential hypertension Take 1 tablet by mouth Once per day. (Blood Pressure) 90 tablet 1 05/21/20 24 Active doxycycline (Vibra-Tabs) 100 MG tablet Take 100 mg by mouth 2 times daily. 05/27/20 24 Active metFORMIN (Glucophage) 1000 MG tabletIndications:T ype 2 diabetes mellitus without complication, with long-term current use of insulin (CMS/[facility]) TAKE 1 TABLET(1000 MG) BY MOUTH EVERY 12 HOURS 180 tablet 3 08/03/19 25 Active glipiZIDE (Glucotrol) 10 MG tablet TAKE 1 TABLET BY MOUTH BEFORE BREAKFAST AND 1 TO 2 TABS BEFORE SUPPER 270 tablet 09/03/19 25 Active semaglutide (Ozempic) 2 MG/1.5ML solution pen-injectorIndicat ions:Type 2 diabetes mellitus with right eye affected by mild nonproliferative retinopathy without macular edema, with long-term current use of insulin (CMS/[facility]ER[facility]) Inject 0.25 mg under the skin 1 (one) time per week. 3 mL 3 09/21/19 25 2024 Active Lantus SoloStar 100 UNIT/ML penIndications:Type 2 diabetes mellitus with right eye affected by mild nonproliferative retinopathy without macular edema, with long-term current use of insulin ([facility]) INJECT 45 UNITS SUBCUTANEOUSLY AT BEDTIME 15 mL 2 09/29/19 25 Active Active Problems Problem Noted Date Diagnosed Date Vitamin D insufficiency 05/23/2024 Overview (05/23/2024): Lab Results Component Value Date [id number] 16.5 (L) 04/26/2024 Started on Vit D [...] due to type 2 diabetes mellitus ( [facility]) 03/01/2022 Hyperlipidemia 06/18/2018 Chronic back pain 06/18/2018 [...] Type Department Care Team Description 10/19/2024 Telephone [facility] [address] [place] [address] Padmini Mayo, Justyna 10/15/2024 Patient Outreach [address] [address] Nica Martínez FNP Pre-visit Planning (SDOH screening negative and Tobacco screening negative) 10/14/2024 Telephone [facility] [address] [place] [address] Nica Martínez FNP Chart Prep 10/14/[address] [address] Nica Martínez FNP Call Back Request 09/28/2024 Refill [facility] [address] [place] [address] Nica Martínez FNP Type 2 diabetes mellitus with right eye affected by mild nonproliferative retinopathy without macular edema, with long-term current use of insulin ([facility]) 09/20/[address] [address] Nica Martínez FNP Medication Question 09/20/2024 Refill [facility] [address] [place] [address] Nica Martínez FNP Type 2 diabetes mellitus without complication, unspecified whether long chain beamer insulin use ([facility]) 09/15/2024 Travel 09/13/2024 Telephone [facility] [address] [place] [address] Erika Heard MA Chart Prep 09/03/[address] [address] Chuyita Amezquita, corrections cadet Question 09/01/2024 Telephone [facility] [address] [place] [address] Nica Martínez FNP August recall from Last 3 Months Immunizations Name Administration [...] 07/21/2021, Additional history exists Diabetes: Hemoglobin A1C 07/27/202404/26/2 024, 04/16/2024, 07/02/2022, Additional history exists Dental Oral Exam 11/30/2024 06/01/2024 Dental Prophylaxis 11/30/2024 06/01/2024 Diabetes: Urine Protein Screening 04/26/2025 04/26/2024, 09/11/2021 Lipid Panel 04/26/2025 04/26/2024 Alcohol/Substance Use Screening 05/21/2025 05/21/2024 Depression Screening 05/21/2025 05/21/2024, 05/21/20 Tobacco Screening 06/01/2025 06/01/2024 Dental X-Ray: Bitewings [...] diabetes mellitus without complication, unspecified whether long chain beamer insulin use ([facility]) Healthcare maintenance LIPID PANEL, STANDARD Routine 04/26/2024 7:18 AM EDT Type 2 diabetes mellitus without complication, unspecified whether long chain beamer insulin use ([facility]) Healthcare maintenance ALBUMIN, RANDOM URINE W/CREATININE Routine 04/26/2024 7:10 AM EDT Type 2 diabetes mellitus without complication, unspecified whether detention insulin use ([facility]) Healthcare maintenance from Last 3 Months or Most Recently Relevant to Health Maintenance Results * Hepatitis C Viral RNA, Quantitative, Real-Time PCR (04/26/2024 7:18 AM EDT) Pathologist [facility] Hepatitis C Viral Load <15 NOT DETECTED NOT DETECTED IU/mL [facility] HCV Log PCR <1.18 NOT DETECTED NOT DETECTED Log IU/mL [facility] Comment:For additional infor macrina, please refer [email or web address](This link is being provided for informational/educational purposes only.)THIS TEST WAS PERFORMED AT:[facility] [place] [phone] GIL MD Blood 04/26/2024 7:18 AM EDT 04/26/2024 7:20 AM EDT us Nica Martínez [facility] PHYS[facility] LAB BLOOD ORDERABLES Final Res ult [facility] [address] [place] [phone] * HIV-1/2 Antigen and Antibodies, Fourth Generation, with Reflexes (04/26/2024 7:18 AM EDT) Pathologist [facility] HIV AB/AG Nonreactive Nonreactive [facility] Comment:HIV-1 p24 Ag and/or HIV-1/HIV-2 Ab not detected.A test result that is nonreactive does not exclude thepossibility of exposure to or infection with HIV-1 and/orHIV-2. Nonreactive results in this assay for individualswith prior exposure to HIV-1 and/or HIV-2 may be due toantigen and antibody levels that are below the limit ofdetection of this assay.The [employer] HIV Ag/Ab Combo assay result andsupplemental assay results should be interpreted inconjunction with the patient's clinical presentation,history and other laboratory results. If the results areinconsistent with clinical evidence, additional testing issuggested to confirm the result. Blood Venous blood specimen / Unknown 04/26/2024 7:18 AM EDT 04/26/2024 7:20 AM EDT Nica Martínez [facility] BLOOD ORDERABLES Final Res ult Performing Organization Address [facility] [address]/[facility] Co de Phone Number [facility] [address] [place] [phone] * (ABNORMAL) Hemoglobin A1c (04/26/2024 7:18 AM EDT) Hemoglobin A1c 9.5(H) <6.0 % [facility] Comment:Hemoglobin A1C Refer ence Range Adults: 4.8 - 6.0 % Non diabetic: < 6.0 % Goal: < 7.0 %Additional Action Suggested: > 8.0 %Note: Hemoglobin A1c results are invalid for patients with abnormal amounts of HbF. Blood transfusions may impact the HbA1c concentration in the patient sample. Estimated Average Glucose 226 mg/dL [facility] Comment:eAG = Estimated ave rage glucose which is %A1C expressed asaverage glucose, using the formula of the D6G-OhrccziZljgowj Glucose study (ADAG), Diabetes Care, Vol.31,#8,2007 Blood Venous blood specimen / Unknown 04/26/2024 7:18 AM EDT 04/26/2024 7:20 AM EDT Nica Martínez [facility] BLOOD ORDERABLES Final Res ult Performing Organization Address [facility] [address]/ZIP Co de Phone Number [facility] [address] [place] [phone] * (ABNORMAL) Lipid Panel, Standard (04/26/2024 7:18 AM EDT) Triglycerides 95 <150 mg/dL [facility] Comment:Desirable Triglyceri de: less than 150 mg/dLBorderline High Triglyceride 150-199 mg/dLHigh Triglyceride: 200-499 mg/dLVery High Triglyceride: greater than or equal to 5OO mg/dL Cholesterol 165 <200 mg/dL [facility] Comment:Desirable Cholestero l: less than 200 mg/dLBorderline High Cholesterol: 200-239 mg/dLHigh Cholesterol: greater than 239 mg/dL LDL Cholesterol Calculated 108(H) <100 mg/dL [facility] Comment:Desirable LDL: less than 100 mg/dLNear Optimal/Above Optimal LDL: 110- 129 mg/dLBorderline High LDL: 130-159 mg/dLHigh LDL: 160-189 mg/dLVery High LDL: greater than or equal to 190 mg/dL HDL Cholesterol 38(L) >40 mg/dL [facility] Comment:Desirable HDL: great er than 40 mg/dL Note: This HDL assay may give artificially low results in patients with liver disease. Blood Venous blood specimen / Unknown 04/26/2024 7:18 AM EDT 04/26/2024 7:20 AM EDT us Nica Martínez [facility]LETAL PHYSICIAN LAB BLOOD ORDERABLES Final Res ult [facility] [address] [place] [phone] * Albumin, Random Urine W/Creatinine (04/26/2024 7:10 AM EDT) Creatinine, Urine 205.94 mg/dL [facility] Microalbumin Urine 20.0 mg/L [facility] Microalbum Creatinine Ratio Ur 9.7 <30 ug/mg cr [facility] Comment:Albumin/Creatinine R atio Reference Ranges: Normal: < 30 ug/mg creatinine Microalbuminuria: 30 - 300 ug/mg creatinineClinical Albuminuria: > 300 ug/mg creatinine Urine 04/26/2024 7:10 AM EDT 04/26/2024 7:45 AM EDT Nica [facility] URINE ORDERABLES Final Res ult [facility] [address] [place] [phone] from Last 3 Months or Most Recently Relevant to Health Maintenance Insurance Care Teams Gardener Florist Relationship Specialty Start Date End Date Nica Martínez FNP [address] [place] [address] PCP - General Family Medicine 05/20/23
--- OUTSIDE RECORDS SUMMARY | 2024-11-17 14:18 | XMS_ITS | Encounter Summary ---
Demographics Address [address] [place] [address] [address] [place] [address] Mobile Phone Home Phone Email Address Preferred Language es Marital Status Worship Affiliation Unknown Race White Ethnic Group Unknown Author Organization [employer] Address [address] [place] [address] Care Team Providers Care Backshoe Person Name Role Phone Nica Martínez Primary Care Provider [phone] Reason for Visit * Reason Comments Med Refill Encounter Details Date Type Department Care Team ([facility] Contact Info) Description 09/20/[address] 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
== END 2024-11-17 13:57 | disposition home or self-care (01) ==
LOC: HO.ENCR 13:05
PROVIDERS: Visit Provider Internal Medicine
DX: E11.65 Type 2 diabetes mellitus with hyperglycemia (principal); Z79.4 Long term (current) use of insulin; N52.9 Male erectile dysfunction, unspecified; M79.2 Neuralgia and neuritis, unspecified

== ENCOUNTER → 2024-11-17 13:05 | Outpatient (BNVA) | payer OTHER, SELFPAY | PROVIDERS: Visit Provider Internal Medicine | DX: E11.65 Type 2 diabetes mellitus with hyperglycemia (principal); N52.9 Male erectile dysfunction, unspecified; M79.2 Neuralgia and neuritis, unspecified; Z79.4 Long term (current) use of insulin | CPT/HCPCS: 82947; 83036 ==